=== PATIENT | female | born 1960 | race Caucasian/White ===

== ENCOUNTER → 2016-04-28 | Outpatient (CLI) | payer MEDICAID ==
--- NOTE | 2016-04-28 11:41 | XR ---
EXAMINATION TYPE: XR shoulder limited LT DATE OF EXAM: 04/28/2016 11:30 AM CLINICAL HISTORY: Neck and shoulder sprain injury with pain. TECHNIQUE: Three views of the left shoulder are obtained. COMPARISON: None. FINDINGS: There is no acute fracture/dislocation evident in the left shoulder. The acromioclavicula r and glenohumeral joint spaces appear within normal limits. The visualized ribs are intact and unre markable. IMPRESSION: There is no acute fracture or dislocation in the left shoulder.
--- NOTE | 2016-04-28 11:43 | XR ---
EXAMINATION TYPE: XR cervical spine limited DATE OF EXAM: 04/28/2016 11:30 AM TECHNIQUE: Frontal, lateral, and open mouth view of the cervical spine are obtained. HISTORY: Neck and shoulder sprain injury with pain. COMPARISON: Cervical spine x-ray July 14, 2013 FINDINGS: The cervical spine is visualized in its entirety from C1 thru the top of T1 level, it is s atisfactory in alignment without evidence of acute fracture or dislocation. The pre-vertebral soft t issue appears within normal limits. The C1-C2 articulation is within normal limits on the open mouth view. Vertebral body heights and disc space heights are fairly well-maintained. Single spur from an terior inferior C5 endplate is redemonstrated. Overlying soft tissue is unremarkable. IMPRESSION: Stable spur anterior inferior C5 vertebra. No significant new findings are seen.
== END | disposition home or self-care (01) ==
LOC: RADXRMAIN 11:07
PROVIDERS: ATTEND Family Medicine
DX: S43.005A Unspecified dislocation of left shoulder joint, initial encounter (principal); M46.02 Spinal enthesopathy, cervical region
CPT/HCPCS: 36415; 72040; 84443

== ENCOUNTER → 2016-05-02 | Outpatient (CLI) | payer MEDICAID ==
--- NOTE | 2016-05-02 16:05 | MR ---
EXAMINATION TYPE: MR shoulder LT wo con DATE OF EXAM: 05/02/2016 10:14 AM COMPARISON: Radiograph 04/28/2016 HISTORY: 55-year-old female Left shoulder pain TECHNIQUE: Multiplanar, multisequence imaging of the left shoulder is performed without contrast. FINDINGS: The long head biceps tendon appears intact and appropriately situated along the bicipital groove. Subscapularis tendon is intact. There is mild marginal spurring at the acromioclavicular joint without significant encroachment onto the underlying cuff. There is mild intermediate signal involving the anterior insertional fibers of the supraspinatus tend on. Both supraspinatus and infraspinatus tendons are intact. While there is no atrophy of the rotator cuff musculature, there is mild patchy edema within the infr aspinatus muscle belly and deltoid musculature and to a greater extent within the teres minor muscle belly. No fluid distention or significant thickening of the subacromial/subdeltoid bursa. There is edematous thickening of the axillary recess at 4.8 mm thick and some edematous change in the rotator cuff interval though the coracohumeral ligament remains less than 3 mm in thickness. There is some irregular signal extending into the superior labrum at the biceps anchor, coronal image 12. No paralabral cyst. No Hill-Sachs deformity or os acromiale. No suspicious bone marrow replacement. IMPRESSION: 1. There is some muscular edema involving the deltoid, infraspinatus, and teres minor suggesting mild muscle strains. Brachial plexus neuritis ([place]arson[place]-Lora syndrome) considered less likely given th e muscle distribution. Clinically correlate. 2. Some edema within the rotator cuff interval and edematous thickening of the axillary recess. These are nonspecific findings that can be seen in the setting of adhesive capsulitis. Again, clinically c orrelate. 3. Mild insertional tendinosis of the anterior supraspinatus. No rotator cuff tear. 4. Findings suspicious for small superior labral tear at the biceps anchor.
== END | disposition home or self-care (01) ==
LOC: RADMRIMAIN 09:25
PROVIDERS: ATTEND Family Medicine
DX: M67.814 Other specified disorders of tendon, left shoulder (principal); G58.8 Other specified mononeuropathies; R60.0 Localized edema

== ENCOUNTER 2017-03-16 11:07 | Emergency (ER) | payer MEDICAID, OTHER ==
[2017-03-16 11:46] VITALS: RESP 18
[2017-03-16 12:26] LABS: Appearance,Urine Clear (Clear); Bilirubin,Urine Negative (Negative); Glucose,Urine (UA) Negative (Negative); Ketones,Urine Negative (Negative); Leukocyte Esterase,Urine Negative (Negative); Nitrite,Urine Negative (Negative); PH, Urine 6.5 (5.0-8.0); Protein,Urine Negative (Negative); Specific Gravity,Urine 1.003 (1.001-1.035); UA Billing (MACRO vs. MICRO) CHEM; Urobilinogen,Urine <2.0 mg/dL (<2.0)
[2017-03-16 12:28] LABS: Basophils # (A) 0.1 k/uL (0-0.2); Basophils % (A) 1 %; CH 28.9; CHCM 33.3; Eosinophils # (A) 0.1 k/uL (0-0.7); Eosinophils % (A) 2 %; HDW 2.24; HGB 14.3 gm/dL (11.4-16.0); Luc # (Auto) 0.08; Luc % (Auto) 1; Lymphocytes # (A) 1.9 k/uL (1.0-4.8); Lymphocytes % (A) 24 %; MCH 28.4 pg (25.0-35.0); MCHC 32.5 g/dL (31.0-37.0); MCV 87.2 fL (80.0-100.0); Mean Platelet Volume 6.9; Monocytes # (A) 0.3 k/uL (0-1.0); Monocytes % (A) 4 %; Neutrophils # (A) 5.4 k/uL (1.3-7.7); Neutrophils % (A) 69 %; RBC 5.04 m/uL (3.80-5.40); RDW 14.5 % (11.5-15.5); WBC 7.8 k/uL (3.8-10.6); WBC (Perox) 7.86
[2017-03-16] MEDS ORDERED: SODIUM CHLORIDE 0.9% 1,000 ML IV ONE (12:28)
[2017-03-16 12:42] LABS: ALT 30 U/L (9-52); AST 20 U/L (14-36); Alkaline Phosphatase 96 U/L (38-126); Anion Gap 9 mmol/L; Blood Urea Nitrogen 13 mg/dL (7-17); Calcium 9.9 mg/dL (8.4-10.2); Carbon Dioxide 28 mmol/L (22-30); Chloride 104 mmol/L (98-107); Glucose 104 mg/dL (74-99); Non-African American GFR(MDRD) >60 (>60 ml/min/1.73 sqM); Potassium 4.5 mmol/L (3.5-5.1); Sodium 141 mmol/L (137-145); Total Bilirubin 0.3 mg/dL (0.2-1.3); Total Protein 7.2 g/dL (6.3-8.2)
[2017-03-16 12:54] LABS: INR 1.1 (<1.2); Prothrombin Time 10.7 sec (9.0-12.0)
--- NOTE | 2017-03-16 13:10 | ED ---
Dizziness HPI - General Chief Complaint: Dizziness Stated Complaint: Near Syncope Time Seen by Provider: 03/16/17 11:47 Source: patient, RN notes reviewed, old records reviewed Mode of arrival: ambulatory Limitations: no limitations - History of Present Illness Initial Comments: This a 56-year-old female presents emergency Department chief complaint of dizziness, near syncope. 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 She states she was sitting there states that she became very lightheaded. She states that she felt she was in the past. She states that at that time she felt her heart start racing. Patient states she try to get up which made symptoms worse. Patient states his appointment which [facility] in loss consciousness. Patient states that she try to eat and drink something states it did not help much. She states she's had problems with this in the past for palpitations and dizziness but states they usually just dissipates. States has not dissipated at this time. Patient denies any chest pain, headache , focal weakness, nausea or vomiting. Patient believes that her blood pressure was dropping when her heart rate was going up. Patient states she did not check her heart rate or blood pressure though - Related Data Home Medications Medication Instructions Recorded Confirmed ALPRAZolam 1 tab PO TID PRN 08/18/15 03/16/17 Cyclobenzaprine [Flexeril] 10 mg PO HS 03/16/17 03/16/17 Ergocalciferol (Vitamin D2) 50,000 unit PO Q30D 03/16/17 03/16/17 [Vitamin D2] Ibuprofen [Motrin] 600 mg PO Q6HR PRN 03/16/17 03/16/17 Lansoprazole [Prevacid] 30 mg PO DAILY 03/16/17 03/16/17 Levothyroxine Sodium [Synthroid] 125 mcg PO DAILY 03/16/17 03/16/17 diphenhydrAMINE [Benadryl] 25 mg PO DAILY PRN 03/16/17 03/16/17 Previous Rx's Medication Instructions Recorded Meclizine [Antivert] 25 mg PO TID PRN #15 tab 03/16/17 Allergies Allergy/AdvReac Type Severity Reaction Status Date / Time morphine AdvReac Nausea & Verified 03/16/17 12:10 Vomiting Review of Systems ROS Statement: Those systems with pertinent positive or pertinent negative responses have been documented in the HPI. ROS Other: All systems not noted in ROS Statement are negative. Past Medical History Past Medical History: GERD/Reflux, Thyroid Disorder Additional Past Medical History / Comment(s): migraines , hiatel hernia History of Any Multi-Drug Resistant Organisms: None Reported Past Surgical History: Cholecystectomy Additional Past Surgical History / Comment(s): colonoscopy Past Psychological History: Anxiety, Depression Smoking Status: Never smoker Past Alcohol Use History: None Reported Past Drug Use History: None Reported General Exam Limitations: no limitations General appearance: alert, in no apparent distress Head exam: Present: atraumatic, normocephalic, normal inspection Eye exam: Present: normal appearance, PERRL, EOMI. Absent: scleral icterus, conjunctival injection, periorbital swelling ENT exam: Present: normal exam, normal oropharynx, mucous membranes moist, TM's normal bilaterally, normal external ear exam Neck exam: Present: normal inspection, full ROM. Absent: tenderness, meningismus, lymphadenopathy Respiratory exam: Present: normal lung sounds bilaterally. Absent: respiratory distress, wheezes, rales, rhonchi, stridor Cardiovascular Exam: Present: regular rate, normal rhythm, normal heart sounds. Absent: systolic murmur, diastolic murmur, rubs, gallop, clicks GI/Abdominal exam: Present: soft, normal bowel sounds. Absent: distended, tenderness, guarding, rebound, rigid Neurological exam: Present: alert, oriented X3, CN II-XII intact Skin exam: Present: warm, dry, intact, normal color. Absent: rash Course Vital Signs 03/16/17 03/16/17 11:43 13:05 Temperature 97.9 F Pulse Rate 104 H Respiratory 18 Rate Blood Pressure 120/73 Blood Pressure 125/75 [Sitting] Blood Pressure 131/77 [Standing] Blood Pressure 123/76 [Supine] O2 Sat by Pulse 97 Oximetry EKG Findings - EKG Comments: EKG Findings:: EKG performed at 11:44 normal sinus rhythm rate of 94 CO 156 QRS 94 QT/QTC 382/477 Medical Decision Making - Medical Decision Making 56-year-old female presented for dizziness. Patient lab work is unremarkable there is no evidence of hypotension or orthostatic hypotension. Patient most likely exhibiting vertigo-type symptoms. Her symptoms are worse with movement. Patient will be discharged with Antivert at this time will have close follow- up return parameters were discussed. Patient again denies having chest pain. - Lab Data Result diagrams: 03/16/17 12:05 03/16/17 12:05 Lab Results 03/16/17 03/16/17 03/16/17 Range/Units 12:05 12:05 12:05 WBC 7.8 (3.8-10.6) k/uL RBC 5.04 (3.80-5.40) m/uL Hgb 14.3 (11.4-16.0) gm/dL Hct 44.0 (34.0-46.0) % MCV 87.2 (80.0-100.0) fL MCH 28.4 (25.0-35.0) pg MCHC 32.5 (31.0-37.0) g/dL RDW 14.5 (11.5-15.5) % Plt Count 289 (150-450) k/uL Neutrophils % 69 % Lymphocytes % 24 % Monocytes % 4 % Eosinophils % 2 % Basophils % 1 % Neutrophils # 5.4 (1.3-7.7) k/uL Lymphocytes # 1.9 (1.0-4.8) k/uL Monocytes # 0.3 (0-1.0) k/uL Eosinophils # 0.1 (0-0.7) k/uL Basophils # 0.1 (0-0.2) k/uL PT 10.7 (9.0-12.0) sec INR 1.1 (<1.2) Sodium 141 (137-145) mmol/L Potassium 4.5 (3.5-5.1) mmol/L Chloride 104 (98-107) mmol/L Carbon Dioxide 28 (22-30) mmol/L Anion Gap 9 mmol/L BUN 13 (7-17) mg/dL Creatinine 0.74 (0.52-1.04) mg/dL Est GFR (MDRD) Af Amer >60 (>60 ml/min/1.73 sqM) Est GFR (MDRD) Non-Af >60 (>60 ml/min/1.73 sqM) Glucose 104 H (74-99) mg/dL Calcium 9.9 (8.4-10.2) mg/dL Magnesium 2.0 (1.6-2.3) mg/dL Total Bilirubin 0.3 (0.2-1.3) mg/dL AST 20 (14-36) U/L ALT 30 (9-52) U/L Alkaline Phosphatase 96 (38-126) U/L Troponin I (0.000-0.034) ng/mL Total Protein 7.2 (6.3-8.2) g/dL Albumin 4.3 (3.5-5.0) g/dL TSH 1.870 (0.465-4.680) mIU/L Urine Color Urine Appearance (Clear) Urine pH (5.0-8.0) Ur Specific [place] (1.001-1.035) Urine Protein (Negative) Urine Glucose (UA) (Negative) Urine Ketones (Negative) Urine Blood (Negative) Urine Nitrite (Negative) Urine Bilirubin (Negative) Urine Urobilinogen (<2.0) mg/dL Ur Leukocyte Esterase (Negative) 03/16/17 03/16/17 Range/Units 12:05 12:05 WBC (3.8-10.6) k/uL RBC (3.80-5.40) m/uL Hgb (11.4-16.0) gm/dL Hct (34.0-46.0) % MCV (80.0-100.0) fL MCH (25.0-35.0) pg MCHC (31.0-37.0) g/dL RDW (11.5-15.5) % Plt Count (150-450) k/uL Neutrophils % % Lymphocytes % % Monocytes % % Eosinophils % % Basophils % % Neutrophils # (1.3-7.7) k/uL Lymphocytes # (1.0-4.8) k/uL Monocytes # (0-1.0) k/uL Eosinophils # (0-0.7) k/uL Basophils # (0-0.2) k/uL PT (9.0-12.0) sec INR (<1.2) Sodium (137-145) mmol/L Potassium (3.5-5.1) mmol/L Chloride (98-107) mmol/L Carbon Dioxide (22-30) mmol/L Anion Gap mmol/L BUN (7-17) mg/dL Creatinine (0.52-1.04) mg/dL Est GFR (MDRD) Af Amer (>60 ml/min/1.73 sqM) Est GFR (MDRD) Non-Af (>60 ml/min/1.73 sqM) Glucose (74-99) mg/dL Calcium (8.4-10.2) mg/dL Magnesium (1.6-2.3) mg/dL Total Bilirubin (0.2-1.3) mg/dL AST (14-36) U/L ALT (9-52) U/L Alkaline Phosphatase (38-126) U/L Troponin I <0.012 (0.000-0.034) ng/mL Total Protein (6.3-8.2) g/dL Albumin (3.5-5.0) g/dL TSH (0.465-4.680) mIU/L Urine Color Light Yellow Urine Appearance Clear (Clear) Urine pH 6.5 (5.0-8.0) Ur Specific [place] 1.003 (1.001-1.035) Urine Protein Negative (Negative) Urine Glucose (UA) Negative (Negative) Urine Ketones Negative (Negative) Urine Blood Negative (Negative) Urine Nitrite Negative (Negative) Urine Bilirubin Negative (Negative) Urine Urobilinogen <2.0 (<2.0) mg/dL Ur Leukocyte Esterase Negative (Negative) Disposition Clinical Impression: Dizziness Disposition: HOME SELF-CARE Condition: Stable Instructions: Dizziness (ED) Additional Instructions: Please return to the Emergency Department if symptoms worsen or any other concerns. Prescriptions: Meclizine [Antivert] 25 mg PO TID PRN #15 tab PRN Reason: Vertigo Referrals: Joao Harvey MD [Primary Care Provider] - 1-2 days Time of Disposition: 14:06
--- NOTE | 2017-03-16 13:55 | XR ---
EXAMINATION TYPE: XR chest 2V DATE OF EXAM: 03/16/2017 COMPARISON: 08/18/2015 HISTORY: Shortness of breath TECHNIQUE: Frontal and lateral views of the chest are obtained. FINDINGS: Scattered senescent parenchymal changes noted. No evidence for infiltrate. No evidence for atelectasis. Heart size is stable. Mediastinal structures are stable and grossly unremarkable. No evidence for hilar prominence. Degenerative changes dorsal spine. IMPRESSION: 1. No evidence for acute pulmonary disease.
[2017-03-16] MEDS ORDERED: MECLIZINE 12.5 MG TAB PO STA (14:05)
[2017-03-16 14:32] VITALS: BP 111/68; PULSE 96; TEMP 98
== END 2017-03-16 14:33 | disposition home or self-care (01) ==
LOC: EC 11:07
DX: R42 Dizziness and giddiness (principal); E07.9 Disorder of thyroid, unspecified; K21.9 Gastro-esophageal reflux disease without esophagitis; Z88.5 Allergy status to narcotic agent; Z79.899 Other long term (current) drug therapy
CPT/HCPCS: 36415; 71020; 80053; 81003; 83735; 84443; 84484; 85025; 85610; 93005; 96360; 99284

== ENCOUNTER → 2017-04-06 | Outpatient (CLI) | payer OTHER ==
--- NOTE | 2017-04-16 13:06 | HM ---
HOLTER MONITOR REPORT 48 HOUR HOLTER: There was a diary provided and only activities were noted but there were 2 episodes when patient felt some rapid heartbeat sensation. Predominant rhythm appears to be sinus with a heart rate ranging of 60 to 150 beats per minute with average heart rate of 115 beats per minute. On reviewing the Holter, there were 2 episodes of rapid heartbeat noted and these correlate with a sinus tachycardia at a rate of 116 beats per minute. There are 2 of them. I only am seeing 1. The second episode when she had some fluttering and dizziness also she was in a sinus tachycardia at a rate of about 128 beats per minute. The entire Holter pretty much suggests sinus tachycardia and sinus rhythm. No other abnormal rhythms were noted. There was no bradyarrhythmia noted. FINAL IMPRESSION: Predominantly sinus with an average heart rate of 117 beats per minute. Patient's perception of a rapid heart rate correlates with sinus tachycardia. No other tachy or bradyarrhythmias were noted. MMODMark / IJN: [id number] /
== END | disposition home or self-care (01) ==
LOC: RADECHMAIN 12:45
PROVIDERS: ATTEND Family Medicine
DX: R55 Syncope and collapse (principal)
CPT/HCPCS: 93225; 93226

== ENCOUNTER → 2017-05-10 | Outpatient (CLI) | payer OTHER ==
--- NOTE | 2017-05-10 12:25 | XR ---
EXAMINATION TYPE: XR hand complete LT DATE OF EXAM: 05/10/2017 CLINICAL HISTORY: pain TECHNIQUE: Frontal, lateral and oblique images of the left hand are obtained. COMPARISON: None. FINDINGS: There is no acute fracture/dislocation evident. The joint spaces appear within normal limi ts. The overlying soft tissue appears unremarkable. IMPRESSION: There is no acute fracture or dislocation. ICD 10 NO FRACTURE, INITIAL EVALUATION
== END | disposition home or self-care (01) ==
LOC: RADXRMAIN 12:00
PROVIDERS: ATTEND Emergency Medicine
DX: S63.613A Unspecified sprain of left middle finger, initial encounter (principal)

== ENCOUNTER 2018-11-07 12:15 | Inpatient (IN) | payer BC, OTHER ==
--- NOTE | 2018-11-07 12:37 | ED ---
Chest Pain HPI - General Chief Complaint: Chest Pain Stated Complaint: chest pain Time Seen by Provider: 11/07/18 12:27 Source: patient, RN notes reviewed, old records reviewed Mode of arrival: wheelchair Limitations: no limitations - History of Present Illness Initial Comments: This is a 57-year-old female the ER for evaluation. Patient sent in the ER for evaluation of chest pain today. Patient sent in by Dr. Wooten for evaluation of chest pain. Patient has no significant history of heart disease no significant travel history no sick contacts no fever cough or congestion MD Complaint: chest pain -: hour(s) Onset: during rest Pain Location: substernal, left chest Pain Radiation: none Severity: moderate Severity scale (1-10): 5 Quality: tightness, heaviness Consistency: constant Improves With: nothing Worsens With: nothing Anginal Symptoms: nausea Treatments Prior to Arrival: none - Related Data Home Medications Medication Instructions Recorded Confirmed ALPRAZolam 1 tab PO HS 08/18/15 11/07/18 Levothyroxine Sodium [Synthroid] 137 mcg PO HS 11/07/18 11/07/18 Montelukast [Singulair] 10 mg PO HS 11/07/18 11/07/18 hydrOXYzine HCL [Atarax] 25 mg PO HS 11/07/18 11/07/18 Allergies Allergy/AdvReac Type Severity Reaction Status Date / Time morphine AdvReac Nausea & Verified 11/07/18 12:51 Vomiting Review of Systems ROS Statement: Those systems with pertinent positive or pertinent negative responses have been documented in the HPI. ROS Other: All systems not noted in ROS Statement are negative. EKG Findings - EKG Comments: EKG Findings:: EKG shows sinus rhythm rate of 84, WA 170, QRS 74, QTc 470 Past Medical History Past Medical History: GERD/Reflux, Thyroid Disorder Additional Past Medical History / Comment(s): migraines , hiatel hernia History of Any Multi-Drug Resistant Organisms: None Reported Past Surgical History: Cholecystectomy Additional Past Surgical History / Comment(s): colonoscopy Past Psychological History: Anxiety, Depression Smoking Status: Never smoker Past Alcohol Use History: None Reported Past Drug Use History: None Reported General Exam Limitations: no limitations General appearance: alert, in no apparent distress Head exam: Present: atraumatic, normocephalic, normal inspection Eye exam: Present: normal appearance, PERRL, EOMI. Absent: scleral icterus, conjunctival injection, periorbital swelling ENT exam: Present: normal exam, mucous membranes moist Neck exam: Present: normal inspection. Absent: tenderness, meningismus, lymphadenopathy Respiratory exam: Present: normal lung sounds bilaterally. Absent: respiratory distress, wheezes, rales, rhonchi, stridor Cardiovascular Exam: Present: regular rate, normal rhythm, normal heart sounds. Absent: systolic murmur, diastolic murmur, rubs, gallop, clicks GI/Abdominal exam: Present: soft, normal bowel sounds. Absent: distended, tenderness, guarding, rebound, rigid Extremities exam: Present: normal inspection, full ROM, normal capillary refill. Absent: tenderness, pedal edema, joint swelling, calf tenderness Back exam: Present: normal inspection Neurological exam: Present: alert, oriented X3, CN II-XII intact Psychiatric exam: Present: normal affect, normal mood Skin exam: Present: warm, dry, intact, normal color. Absent: rash Course Vital Signs 11/07/18 12:23 Temperature 97.9 F Pulse Rate 99 Respiratory 20 Rate Blood Pressure 121/80 O2 Sat by Pulse 99 Oximetry - Reevaluation(s) Reevaluation #1: 11/07/18 12:37 Medical records reviewed Reevaluation #2: 11/07/18 15:[address] angio chest negative for acute disease Chest Pain MDM - MDM 57 female to ED co CP< Abd Pain since gallbladder surgery, patient is positive for pancreatitis, will admit for NPO, symptom management. Disposition Clinical Impression: Atypical chest pain, Acute pancreatitis Disposition: ADMITTED IP TO THIS [facility] Condition: Good Instructions (If sedation given, give patient instructions): Chest Pain (ED) Is patient prescribed a controlled substance at d/c from ED?: No Referrals: Joao Harvey MD [Primary Care Provider] - 1-2 days
[2018-11-07 13:01] LABS: Basophils % (A) 1 %; Eosinophils # (A) 0.1 k/uL (0-0.7); Eosinophils % (A) 1 %; HCT 42.4 % (34.0-46.0); HGB 13.6 gm/dL (11.4-16.0); Lymphocytes # (A) 2.1 k/uL (1.0-4.8); Lymphocytes % (A) 28 %; MCH 27.3 pg (25.0-35.0); MCV 85.4 fL (80.0-100.0); Mean Platelet Volume 6.3; Monocytes # (A) 0.2 k/uL (0-1.0); Monocytes % (A) 3 %; Neutrophils % (A) 66 %; Platelet Count 347 k/uL (150-450); RBC 4.96 m/uL (3.80-5.40); RDW 13.2 % (11.5-15.5); WBC 7.6 k/uL (3.8-10.6)
--- NOTE | 2018-11-07 13:07 | XR ---
EXAMINATION TYPE: XR chest 2V DATE OF EXAM: 11/07/2018 COMPARISON: 03/16/2017 HISTORY: Shortness of breath TECHNIQUE: Frontal and lateral views of the chest are obtained. FINDINGS: Scattered senescent parenchymal changes noted. Hyperinflation compatible with COPD. No evidence for infiltrate. No evidence for atelectasis. Heart size is stable. Mediastinal structures are stable and grossly unremarkable. No evidence for hilar prominence. Degenerative changes dorsal spine. IMPRESSION: 1. No evidence for acute pulmonary disease.
[2018-11-07 13:14] LABS: D-Dimer <0.17 mg/L FEU (<0.60); Partial Thromboplastin Time 24.4 sec (22.0-30.0); Prothrombin Time 10.3 sec (9.0-12.0)
[2018-11-07 13:21] LABS: ALT 18 U/L (9-52); AST 22 U/L (14-36); African American GFR (CKD) >90 (>60 ml/min/1.73 sqM); Albumin 4.5 g/dL (3.5-5.0); Alkaline Phosphatase 103 U/L (38-126); Anion Gap 9 mmol/L; Blood Urea Nitrogen 13 mg/dL (7-17); Calcium 9.6 mg/dL (8.4-10.2); Carbon Dioxide 25 mmol/L (22-30); Chloride 106 mmol/L (98-107); Glucose 119 mg/dL (74-99); Lipase 1744 U/L (23-300); Magnesium 1.9 mg/dL (1.6-2.3); Sodium 140 mmol/L (137-145); Total Bilirubin 0.4 mg/dL (0.2-1.3); Total Protein 7.2 g/dL (6.3-8.2)
[2018-11-07] MEDS ORDERED: HYDROmorphone 1 MG/ML 1 ML SYRINGE IVP PRN ×2 (14:31→19:43)
[2018-11-07] MEDS ORDERED: HYDROmorphone 0.5 MG/0.5 ML SYRINGE IVP STA (14:31)
--- NOTE | 2018-11-07 15:11 | CT ---
EXAMINATION TYPE: CT angio chest DATE OF EXAM: 11/07/2018 COMPARISON: None HISTORY: 57-year-old female Upper abdominal and chest pain TECHNIQUE: Contiguous axial scanning of the chest performed with IV Contrast, patient injected with 1 00 mL of Isovue 370. Coronal/sagittal MIP reconstructions performed. CT DLP: 220.3 mGycm Automated exposure control for dose reduction was used. FINDINGS: Areas of nodularity in the central portion of the superior left breast can be evaluated with routine annual mammography. Heart upper limits of normal in size. There is mild pericardial fluid along the left heart border. Aorta normal caliber with conventional arch vessel branching anatomy. Satisfactory opacification of the pulmonary nodule system without evidence for pulmonary embolus. No thoracic lymphadenopathy. Prominent but not enlarged 1.4 cm subcarinal lymph node. Prominent dependent atelectasis is noted. 3 mm peripheral right upper lobe pulmonary nodule from axial image 35. Mild diffuse bronchial wall th ickening. 1 cm splenic artery aneurysm at the splenic hilum. Cholecystectomy clips. Bones: No osseous destructive process. IMPRESSION: 1. NO EVIDENCE FOR PULMONARY EMBOLUS. 2. BRONCHIAL WALL THICKENING COULD REFLECT BRONCHITIS OR ASTHMA. PROMINENT DEPENDENT ATELECTASIS. 3. A 3 MM RIGHT UPPER LOBE PULMONARY NODULE CAN BE REASSESSED IN ONE YEAR. 4. A 1 CM SPLENIC ARTERY ANEURYSM. FOLLOW-UP INDICATED.
[2018-11-07] MEDS ORDERED: SODIUM CHLORIDE 0.9% 1,000 ML IV STA ×2 (15:13)
[2018-11-07] MEDS ORDERED: SODIUM CHLORIDE 0.9% 2,000 ML IV STA (15:13)
--- NOTE | 2018-11-07 15:24 | CT ---
EXAMINATION TYPE: CT abdomen pelvis w con DATE OF EXAM: 11/07/2018 COMPARISON: NONE HISTORY: 57-year-old female Upper abdominal and chest pain TECHNIQUE: Contiguous axial scanning of the abdomen and pelvis following administration of 100 ml Iso hilton 370 IV contrast. Delayed images through the kidneys and coronal/sagittal reconstructions perform ed. CT DLP: 457.6 mGycm Automated exposure control for dose reduction was used. FINDINGS: Lower chest reported separately. Indeterminate 1.4 cm hypodense lesion centrally in the right liver lobe. Additional hepatic hypodensi ties measuring up to 7 mm at the right hepatic are nonspecific. These are not as clearly seen on the delayed. Mild prominence to the biliary system status post cholecystectomy. Portal venous system is patent Possible hypervascular nodule posterior aspect of the pancreatic tail measuring 8 mm. This warrants c lose follow-up. Adrenal glands, kidneys appear within normal limits. Nonspecific 1 cm contour nodularity anterior low er pole spleen can be reassessed at follow-up. 1 cm splenic artery aneurysm. No dilated small bowel, free fluid, or free air. No mesenteric or retroperitoneal lymphadenopathy. Normal appendix. No significant stool burden. Mild circumferential wall thickening of the ascending a nd transverse colon may relate to nondistention. No pericolonic inflammatory change. Bladder urine distended. Uterus is visualized. Neither ovaries are clearly seen and could be small. N o abnormal fluid collection in the pelvis or pelvic lymphadenopathy. Bones: No osseous destructive process. IMPRESSION: 1. CIRCUMFERENTIAL WALL THICKENING OF THE ASCENDING AND TRANSVERSE COLON COULD BE SECONDARY TO NONDIS TENTION OR NONSPECIFIC MILD COLITIS. CLINICALLY CORRELATE. 2. POSSIBLE 8 MM HYPERVASCULAR MASS OF THE PANCREATIC TAIL. A NEUROENDOCRINE TUMOR AND PANCREATIC ISL ET CELL TUMOR ARE A COUPLE DIFFERENTIAL CONSIDERATIONS. CLOSE THREE-MONTH FOLLOW-UP RECOMMENDED. 3. A FEW INDETERMINATE LIVER LESIONS MEASURING UP TO 1.4 CM. THESE DO NOT CLEARLY REPRESENT CYSTS THEY ARE NOT WELL-SEEN ON THE DELAYED KIDNEY IMAGES. AGAIN, CLOSE FOLLOW-UP RECOMMENDED.
[2018-11-07] MEDS: hydrOXYzine HCL 25 MG TAB PO SCH (21:27)
[2018-11-07] MEDS: LEVOTHYROXINE 137 MCG TAB PO SCH (21:27)
[2018-11-07] MEDS: ALPRAZolam 1 MG TAB PO SCH (21:28)
[2018-11-07] MEDS: MONTELUKAST 10 MG TAB PO SCH (21:28)
[2018-11-07] MEDS ORDERED: ONDANSETRON 4 MG/2 ML VIAL IVP PRN (22:13)
[2018-11-07] MEDS ORDERED: diphenhydrAMINE 50 MG/ML 1 ML VIAL IVP PRN (22:53)
[2018-11-07] MEDS ORDERED: ACETAMINOPHEN TAB 325 MG TAB PO PRN (22:54)
[2018-11-08 08:01] LABS: Amylase 89 U/L (30-110); Lipase 361 U/L (23-300)
[2018-11-08] MEDS: ENOXAPARIN 40 MG/0.4 ML SYRINGE SQ SCH (09:53)
[2018-11-08] MEDS ORDERED: diphenhydrAMINE 25 MG CAP PO PRN (10:43)
--- NOTE | 2018-11-08 13:11 | P.CONS ---
History of Present Illness - Reason for Consult Consult date: 11/08/18 Pancreatitis Requesting physician: Blanca Gagnon - Chief Complaint Abdominal pain - History of Present Illness 57-year-old female past medical history laparoscopic cholecystectomy for cholelithiasis [address] Santos admitted with chest upper abdominal pain. CT abdomen and pelvis reported circumferential wall thickening of the ascending and transverse colon possible secondary to nondistention or nonspecific mild colitis. Possible 8 mm hypervascular mass pancreatic tail. Neuroendocrine tumor pancreatic islet cell tumor within differentials considerations. A few indeterminate liver lesions measuring up to 1.4 cm not clearly representing cysts. CT chest no evidence of pulmonary embolism. 3 mm right upper lobe pulmonary nodule and 1 cm splenic artery aneurysm. No history of pancreatitis. No history of alcoholism. No changes in medications. Patient has experienced over the last 2 years intermittent abdominal pain certain foods but nothing specific or consistent. No weight loss fever or chills. Denies hematemesis hematochezia melena. Remote peptic ulcer disease in her early 20s. No recent EGD. Colonoscopy 5 years ago to her memory was normal. White count 7.6. Hemoglobin 13.6. Platelet 347. INR 1.0. D-dimer less than 0.17. LFTs total bilirubin 0.4. AST 22. ALT 18. AP 103. Lipase 1744, today improved at 361. Amylase 89. Review of Systems Constitutional: Denies fever, chills, sweats, weight gain, or loss. HEENT: Negative for migraines, blurred vision or loss, earaches, drainage, tinnitus, oral mucosal lesions, dysphagia, or odynophagia. CARDIAC: Admitted with chest pain, denies arrhythmias, or palpitation. RESPIRATORY: Negative for shortness of breath, hemoptysis, cough, or sputum p roduction. GI: See HPI for pertinent findings. : Negative for hematuria, urgency, frequency, polyuria, or dysuria. GYNc: Denies possibility of . Negative vaginal discharge. MUSCULOSKELETAL: Negative for muscle aches, swelling, arthritis, and arthralgias. NEUROLOGIC: Negative for stroke or TIA. ENDOCRINE: Negative for thyroid problems. SKIN: Negative for rash or itching. PSYCHIATRIC: Negative history for depression and anxiety Past Medical History Past Medical History: GERD/Reflux, Thyroid Disorder Additional Past Medical History / Comment(s): migraines , hiatel hernia History of Any Multi-Drug Resistant Organisms: None Reported Past Surgical History: Cholecystectomy Additional Past Surgical History / Comment(s): colonoscopy, histalscopy, D&C Past Psychological History: Anxiety, Depression Smoking Status: Never smoker Past Alcohol Use History: None Reported Past Drug Use History: None Reported - Past Family History Father Additional Family Medical History / Comment(s): Father from end-stage COPD. Mother Additional Family Medical History / Comment(s): Mother at age 55 from non- Hodgkin's lymphoma. Brother(s) Additional Family Medical History / Comment(s): Patient had a total of 5 brothers: One at age 55 from lung cancer, one from a myocardial infarction with this first one being in his 50s. Patient has 3 brothers that are alive and one has coronary artery disease. One brother is a half-brother with no major medical problems. One full brother has no major medical problems. Sister(s) Additional Family Medical History / Comment(s): The patient has one sister with history of postural orthostatic tachycardic syndrome, cardiac ablation, hypot hyroidism. Daughter(s) Additional Family Medical History / Comment(s): The patient has 2 daughters and one has been diagnosed with Graves' disease. A second daughter and one son with no major medical problems. Medications and Allergies Home Medications Medication Instructions Recorded Confirmed Type ALPRAZolam 1 tab PO HS 08/18/15 11/07/18 History Levothyroxine Sodium [Synthroid] 137 mcg PO HS 11/07/18 11/07/18 History Montelukast [Singulair] 10 mg PO HS 11/07/18 11/07/18 History hydrOXYzine HCL [Atarax] 25 mg PO HS 11/07/18 11/07/18 History Allergies Allergy/AdvReac Type Severity Reaction Status Date / Time hydromorphone [From Dilaudid] AdvReac Severe Itching Verified 11/07/18 21:30 morphine AdvReac Nausea & Verified 11/07/18 19:28 Vomiting Physical Exam Vitals: Vital Signs Temp Pulse Pulse Pulse Resp BP BP 11/08/18 05:37 97.8 F 63 18 95/59 11/07/18 23:45 63 18 11/07/18 21:26 97.7 F 63 18 106/66 11/07/18 16:00 94 114/78 11/07/18 14:30 85 113/73 11/07/18 13:30 85 135/81 11/07/18 12:23 97.9 F 99 20 121/80 Pulse Ox 11/08/18 05:37 93 L 11/07/18 23:45 11/07/18 21:26 95 11/07/18 16:00 97 11/07/18 14:30 95 11/07/18 13:30 99 11/07/18 12:23 99 Intake and Output 11/07/18 11/08/18 11/08/18 22:59 06:59 14:59 Intake Total 300 400 Output Total 3 Balance 297 400 Intake: Intake, IV Titration 300 400 Amount Sodium Chloride 0.9% 1, 300 400 000 ml @ 100 mls/hr IV . Q10H STA Rx#:[id number] Output: Urine 3 Other: Voiding Method Toilet General appearance: The patient is alert, oriented, in no acute distress. HET: Head is normocephalic and atraumatic. Pupils are equal and reactive. Oropharynx is clear without lesions. Neck: Supple without lymphadenopathy. Trachea midline. Heart: S1 S2. Regular rate and rhythm. Lungs: No crackles or wheezes are heard. Abdomen: Soft, mild tenderness to the midepigastric, nondistended with bowel sounds. No peritoneal signs. No palpable organomegaly or masses. Extremities: Normal skin color and turgor. No cyanosis, rash, ulceration, clubb ing, or edema. Radial and pedal pulses are 2/4 bilaterally. Neurological: No focal deficits. Strength and sensation are grossly intact. Results CBC & Chem 7: 11/07/18 12:30 11/07/18 12:30 Labs: Abnormal Lab Results - Last 24 Hours (Table) 11/07/18 11/08/18 Range/Units 12:30 07: Glucose 119 H (74-99) mg/dL Lipase 1744 H 361 H (23-300) U/L CT scan - abdomen: report reviewed (Dr. Barahona) CT scan - chest: report reviewed (Dr. Barahona) Assessment and Plan (1) Acute pancreatitis Narrative/Plan: 57-year-old female with a history of calculus cholecystectomy 5 years ago presents with acute abdominal pain elevated pancreatic enzymes consistent with acute pancreatitis etiology unclear. Abdominal imaging reported hepatic indeterminate lesions as well as pancratic tail hypervascular mass. Current Visit: Yes Status: Acute Code(s): K85.90 - ACUTE PANCREATITIS WITHOUT NECROSIS OR INFECTION, UNSP SNOMED Code(s): 587647080 (2) Chest pain Current Visit: Yes Status: Acute Code(s): R07.9 - CHEST PAIN, UNSPECIFIED SNOMED Code(s): 97348737 (3) Abnormal CT of the abdomen Current Visit: Yes Status: Acute Code(s): R93.5 - ABN FINDINGS ON DX IMAGING OF ABD REGIONS, INC RETROPERITON SNOMED Code(s): 71522907512092156 Plan: 1. EUS abdomen pending. MRI pancreas/ MRCP. Daily CMP CBC amylase lipase. Triglycerides. [employer] serology. CA-19-9. AFP CEA. Light diet as tolerated pending improvement of pancreatic enzymes. Will follow closely with you. Patient may require outpatient EUS per clinical course. Thank you for this kind referral and the opportunity to participate in the care of your patient. This consultation was discussed with Dr. Barahona. The impression and plan of care have been directed as dictated.
[2018-11-08] MEDS: PANTOPRAZOLE 40 MG/10 ML VIAL IVP SCH (13:24)
--- NOTE | 2018-11-08 14:12 | US ---
EXAMINATION TYPE: US abdomen limited DATE OF EXAM: 11/08/2018 COMPARISON: CT abdomen 11/07/2018 CLINICAL HISTORY: Pancreatitis, hx cholecystectomy. GB removed. EXAM MEASUREMENTS: Liver Length: 14.5 cm CBD: 0.7 cm Right Kidney: 9.6 x 4.4 x 5.2 cm Suboptimal visualization due to overlying bowel gas Pancreas: Portions seen appear echogenic in appearance. Prominent vessel seen in tail. Limited vis ualization of pancreas due to overlying bowel Liver: Limited visualization of liver due to bowel gas. Scanned through ribs. Cystic appearing les ion seen in right lobe = 0.5 cm., Smaller lesion at the margin of the left lobe, findings correlate w ith CT Gallbladder: Surgically absent Evidence for sonographic Olivas's sign: neg CBD: Dilated Right Kidney: wnl There is no ascites. Cortical medullary differentiation is maintained within the right kidney. IMPRESSION: Status post cholecystectomy. Probable liver cysts. Prominent common bile duct likely due to postcholecystectomy change. Limited exam. The abnormality described on patient's CT within the kevin l of the pancreas is not seen definitively on ultrasound
--- NOTE | 2018-11-08 14:59 | P.HPIM ---
History of Present Illness H&P Date: 11/08/18 Chief Complaint: Abdominal pain This is a 57-year-old female patient of Dr. Harvey with past medical history of hypothyroidism, seasonal ALLERGIES, generalized anxiety disorder, hiatal hernia, migraine headaches, history of cholecystectomy [place] [address] Santos. Patient states that she has been having episodes of pain in the upper abdomen under her ribs since her gallbladder was taken out. She states sometimes it so severe that she doubles over in this happened yesterday. 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 She states she did not have any food didn't eat yesterday and only had a couple drinks of Sprite. The day before she had gross and mashed potatoes. Patient came into [facility] emergency center for evaluation. She was afebrile, heart rate 99, blood pressure 121/90, pulse ox 99% on room air. CBC was normal, CMP was normal except for glucose of 119. Troponin negative. Lipase 1744. Chest x-ray was negative for acute cardiopulmonary disease. CT angiogram of the chest revealed no pulmonary embolism. Bronchial wall thickening could reflect bronchitis or asthma. Prominent dependent atelectasis. A 3 mm right upper lobe pulmonary n odule can be reassessed in one year. A 1 cm splenic artery aneurysm. CT of the abdomen and pelvis revealed circumferential wall thickening of the ascending and transverse colon could be secondary to non-distention or nonspecific mild colitis. Clinically correlate. Possible 8 mm hypervascular mass of the pancreatic tail. A neuroendocrine tumor or pancreatic islet cell tumor are a couple differential considerations. Close three-month follow-up is recommended. A few indeterminate liver lesions measuring up to 1.4 cm. These do not clearly represents cyst as they are not as well seen on the delayed kidney images. Review of Systems All systems: negative Constitutional: Reports poor appetite, Denies chills, Denies fatigue, Denies fever, Denies malaise, Denies weakness Eyes: denies blurred vision, denies pain Ears, nose, mouth and throat: Denies dysphagia, Denies headache, Denies nasal congestion, Denies nasal discharge, Denies sore throat, Denies vertigo Cardiovascular: Denies chest pain, Denies decreased exercise tolerance, Denies dyspnea on exertion, Denies leg edema, Denies shortness of breath, Denies syncope Respiratory: Denies cough, Denies cough with sputum, Denies dyspnea, Denies excessive sputum, Denies hemoptysis, Denies home oxygen, Denies respiratory infections Gastrointestinal: Reports abdominal pain, Reports loss of appetite, Reports nausea, Denies diarrhea, Denies vomiting Genitourinary: Denies dysuria, Denies hematuria, Denies urgency, Denies urinary frequency Musculoskeletal: Denies frequent falls, Denies gait dysfunction, Denies muscle weakness, Denies myalgias Integumentary: Denies pruritus, Denies rash, Denies wounds Neurological: Denies aphasia, Denies change in mentation, Denies change in speech, Denies numbness, Denies seizures, Denies weakness Psychiatric: Denies anxiety, Denies depression Endocrine: Denies fatigue, Denies weight change Past Medical History Past Medical History: GERD/Reflux, Thyroid Disorder Additional Past Medical History / Comment(s): migraines , hiatel hernia History of Any Multi-Drug Resistant Organisms: None Reported Past Surgical History: Cholecystectomy Additional Past Surgical History / Comment(s): colonoscopy, histalscopy, D&C Past Psychological History: Anxiety, Depression Smoking Status: Never smoker Past Alcohol Use History: None Reported Additional Past Alcohol Use History / Comment(s): She is a lifelong nonsmoker. She denies any illicit drug use, no alcohol abuse. 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 Past Drug Use History: None Reported - Past Family History Father Additional Family Medical History / Comment(s): Father from end-stage COPD. Mother Additional Family Medical History / Comment(s): Mother at age 55 from non- Hodgkin's lymphoma. Brother(s) Additional Family Medical History / Comment(s): Patient had a total of 5 brothers: One at age 55 from lung cancer, one from a myocardial infarction with this first one being in his 50s. Patient has 3 brothers that are alive and one has coronary artery disease. One brother is a half-brother with no major medical problems. One full brother has no major medical problems. Sister(s) Additional Family Medical History / Comment(s): The patient has one sister with history of postural orthostatic tachycardic syndrome, cardiac ablation, hypot hyroidism. Daughter(s) Additional Family Medical History / Comment(s): The patient has 2 daughters and one has been diagnosed with Graves' disease. A second daughter and one son with no major medical problems. Medications and Allergies Home Medications Medication Instructions Recorded Confirmed Type ALPRAZolam 1 tab PO HS 08/18/15 11/07/18 History Levothyroxine Sodium [Synthroid] 137 mcg PO HS 11/07/18 11/07/18 History Montelukast [Singulair] 10 mg PO HS 11/07/18 11/07/18 History hydrOXYzine HCL [Atarax] 25 mg PO HS 11/07/18 11/07/18 History Allergies Allergy/AdvReac Type Severity Reaction Status Date / Time hydromorphone [From Dilaudid] AdvReac Severe Itching Verified 11/07/18 21:30 morphine AdvReac Nausea & Verified 11/07/18 19:28 Vomiting Physical Exam Vitals: Vital Signs Temp Pulse Pulse Pulse Pulse Resp BP 11/08/18 11:27 97.9 F 89 15 11/08/18 05:37 97.8 F 63 18 11/07/18 23:45 63 18 11/07/18 21:26 97.7 F 63 18 11/07/18 16:00 94 114/78 11/07/18 14:30 85 113/73 11/07/18 13:30 85 135/81 11/07/18 12:23 97.9 F 99 20 121/80 BP BP Pulse Ox 11/08/18 11:27 108/54 98 11/08/18 05:37 95/59 93 L 11/07/18 23:45 11/07/18 21:26 106/66 95 11/07/18 16:00 97 11/07/18 14:30 95 11/07/18 13:30 99 11/07/18 12:23 99 Intake and Output 11/07/18 11/08/18 11/08/18 22:59 06:59 14:59 Intake Total 300 400 Output Total 3 Balance 297 400 Intake: Intake, IV Titration 300 400 Amount Sodium Chloride 0.9% 1, 300 400 000 ml @ 100 mls/hr IV . Q10H STA Rx#:[id number] Output: Urine 3 Other: Voiding Method Toilet Toilet Gen: This is a 57-year-old female. Patient is resting bed and appears to be comfortable and in no acute distress. HEENT: Head is atraumatic, normocephalic. Pupils equal, round. Sclerae is anicteric. NECK: Supple. No JVD. No lymphadenopathy. No thyromegaly. LUNGS: Clear to auscultation. No wheezes or rhonchi. No intercostal retractions. HEART: Regular rate and rhythm. No murmur. ABDOMEN: Soft. Bowel sounds are present. No masses. Right upper quadrant tenderness. EXTREMITIES: No pedal edema. No calf tenderness. Dorsalis pedis +2 bilaterally. NEUROLOGICAL: Patient is awake, alert and oriented x3. Cranial nerves 2 through 12 are grossly intact. Results CBC & Chem 7: 11/07/18 12:30 11/07/18 12:30 Labs: Abnormal Lab Results - Last 24 Hours (Table) 11/07/18 11/08/18 Range/Units 12:30 07:19 Glucose 119 H (74-99) mg/dL Lipase 1744 H 361 H (23-300) U/L Thrombosis Risk Factor Assmnt - DVT/VTE Prophylaxis DVT/VTE Prophylaxis: Pharmacologic Prophylaxis ordered - Choose All That Apply Each Factor Represents 1 point: Age 41-60 years Other Risk Factors: No Thrombosis Risk Factor Assessment Total Risk Factor Score: 1 Thrombosis Risk Factor Assessment Level: Low Risk Assessment and Plan Plan: 1. Acute pancreatitis. Consult GI. IV fluids will be discontinued and patient started on a soft diet. Chromogranin A, CEA, alpha-fetoprotein, CA 199 all ordered. Continue Zofran for pain. Abdominal ultrasound ordered. 2. Possible 8 mm hypervascular mass of the pancreas tail found on CAT scan. Abdominal ultrasound. 3. Indeterminate liver lesions found on CAT scan. Abdominal ultrasound 4. Gastroesophageal reflux disease and hiatal hernia. Protonix 5. Hypothyroidism. Levothyroxine 137 g daily 6. Migraine headache. 7. Generalized anxiety disorder. Xanax 1 mg at bedtime. 8. Seasonal ALLERGIES. Continue Singulair. 9. DVT prophylaxis. Lovenox. 10. GI prophylaxis. Protonix. Patient will be admitted to the hospital for a minimum of 2 night stay. Discharge plan: Return home. Impression and plan of care have been directed as dictated by the signing physician. Rochelle Nunes nurse practitioner acting as scribe for signing physician.
[2018-11-08 19:18] LABS: Alpha Fetoprotein, Tumor Mkr <2.5 ng/mL (0.0-7.9)
[2018-11-08 19:32] LABS: Cancer Antigen 19-9 21.9 U/mL (0.0-34.9)
--- NOTE | 2018-11-08 19:40 | MR ---
MR pancreas, MRCP without and with contrast HISTORY: Multiplanar multisequence and postcontrast images obtained through the abdomen following 6.5 cc Gadav ist IV. Three-dimensional reconstructions performed through the biliary system. Correlation ultrasound abdomen 11/08/[address] abdomen pelvis 11/05/2018 The abnormality described within the tail of the pancreas and prior CT is again noted and shows mild increased signal in T2-weighted sequences, intermediate signal on T1-weighted sequences and mild enha ncement following contrast administration. The area measures only approximately 8 mm at the level of the tail of pancreas posteriorly and immediately anterior to the spleen at its medial aspect. The previously described cystic foci within the liver show corresponding mild increased signal on T1- weighted sequences, low signal on T2-weighted sequences, and no enhancement following contrast admini stration, the largest in the medial aspect of the right lobe liver with internal septations and measu res approximately 15 mm. There is no dilated intra or extrahepatic biliary ducts. Gallbladder is abse nt. There is no retroperitoneal adenopathy. Adrenal glands and kidneys are unremarkable. Aorta shows norm al caliber. MRCP shows no dilated intra or extrahepatic biliary ducts. There is no intraluminal filling defect to suggest retained gallstone. IMPRESSION: Subcentimeter vascular mass suspected at the posterior aspect of the pancreatic tail is i ndeterminate. Liver cysts. Postcholecystectomy.
[2018-11-08] MEDS: hydrOXYzine HCL 25 MG TAB PO SCH (20:26)
[2018-11-08] MEDS: ALPRAZolam 1 MG TAB PO SCH (20:26)
[2018-11-08] MEDS: MONTELUKAST 10 MG TAB PO SCH (20:27)
[2018-11-08] MEDS: LEVOTHYROXINE 137 MCG TAB PO SCH (20:27)
[2018-11-09] MEDS: PANTOPRAZOLE 40 MG/10 ML VIAL IVP SCH (09:01)
[2018-11-09] MEDS: ENOXAPARIN 40 MG/0.4 ML SYRINGE SQ SCH (09:01)
[2018-11-09 09:32] LABS: Cholesterol 223 mg/dL (<200); HDL Cholesterol 68 mg/dL (40-60); LDL Cholesterol,Calculated 133 mg/dL (0-99); Lipase 83 U/L (23-300); Triglycerides 108 mg/dL (<150)
[2018-11-09 12:18] VITALS: BP 114/63; PULSE 58; RESP 15; TEMP 97.6
--- NOTE | 2018-11-09 15:25 | P.DS ---
Providers Date of admission: 11/07/18 15:50 Expected date of discharge: 11/09/18 Attending physician: Blanca Gagnon Consults: 11/07/18 15:50 Consult Physician Routine Consulting Provider: Ender Barahona Consult Reason/Comments: pancreatitis Do you want consulting provider notified?: Yes Primary care physician: Joao Harvey [facility] Course: This is a 57-year-old female patient of Dr. Harvey with past medical history of hypothyroidism, seasonal ALLERGIES, generalized anxiety disorder, hiatal hernia, migraine headaches, history of cholecystectomy [place] [address] Santos. Patient states that she has been having episodes of pain in the upper abdomen under her ribs since her gallbladder was taken out. She states sometimes it so severe that she doubles over in this happened yesterday. 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 She states she did not have any food didn't eat yesterday and only had a couple drinks of Sprite. The day before she had gross and mashed potatoes. Patient came into [facility] emergency center for evaluation. She was afebrile, heart rate 99, blood pressure 121/90, pulse ox 99% on room air. CBC was normal, CMP was normal except for glucose of 119. Troponin negative. Lipase 1744. Chest x-ray was negative for acute cardiopulmonary disease. CT angiogram of the chest revealed no pulmonary embolism. Bronchial wall thickening could reflect bronchitis or asthma. Prominent dependent atelectasis. A 3 mm right upper lobe pulmonary nodule can be reassessed in one year. A 1 cm splenic artery aneurysm. CT of the abdomen and pelvis revealed circumferential wall thickening of the ascending and transverse colon could be secondary to non-distention or nonspecific mild colitis. Clinically correlate. Possible 8 mm hypervascular mass of the pancreatic tail. A neuroendocrine tumor or pancreatic islet cell tumor are a couple differential considerations. Close three-month follow-up is recommended. A few indeterminate liver lesions measuring up to 1.4 cm. These do not clearly represents cyst as they are not as well seen on the delayed kidney images. 11/09: Patient states that she is feeling much better today. She is eating okay. Today is her first solid food. She denies having any nausea or vomiting. She is not passing gas and has not had a bowel movement. Pain is now just a discomfort under her ribs. MRCP reveals subcentimeter vascular mass suspected at the posterior aspect of the pancreatic tail is indeterminate. Liver cysts. Post cholecystectomy. Repeat lipase today is 83, AFP tumor marker, CEA, CA 199 all negative. Triglycerides 108, cholesterol 223, LDL 133, HDL 68. Chromogranin, JENNIFER, IgE subclasses all pending. If chromogranin comes back positive, patient will need follow-up with oncology. Patient will be discharged home today in stable condition. Discharge diagnoses: 1. Acute pancreatitis. 2. Possible 8 mm hypervascular mass of the pancreas tail found on CAT scan. 3. Indeterminate liver lesions: Liver cysts per MRCP. 4. Gastroesophageal reflux disease and hiatal hernia. 5. Hypothyroidism. 6. Migraine headache. 7. Generalized anxiety disorder. 8. Seasonal ALLERGIES. Discharge plan: Return home. Impression and plan of care have been directed as dictated by the signing physician. Rochelle Nunes nurse practitioner acting as scribe for signing physician. Patient Condition at Discharge: Good Plan - Discharge Summary Discharge Rx Participant: Yes New Discharge Prescriptions: New Pantoprazole Sodium [Protonix] 40 mg PO DAILY #30 tablet. Continue ALPRAZolam 1 tab PO HS Levothyroxine Sodium [Synthroid] 137 mcg PO HS hydrOXYzine HCL [Atarax] 25 mg PO HS Montelukast [Singulair] 10 mg PO HS Discharge Medication List ALPRAZolam 1 tab PO HS 08/18/15 [History] Levothyroxine Sodium [Synthroid] 137 mcg PO HS 11/07/18 [History] Montelukast [Singulair] 10 mg PO HS 11/07/18 [History] hydrOXYzine HCL [Atarax] 25 mg PO HS 11/07/18 [History] Pantoprazole Sodium [Protonix] 40 mg PO DAILY #30 tablet. 11/09/18 [Rx] Follow up Appointment(s)/Referral(s): Joao Harvey MD [Primary Care Provider] - 11/17/18 8:45 am Ender Barahona MD [STAFF PHYSICIAN] - 1 Week (Patient prefers to make own follow-up appt. ) Patient Instructions/Handouts: Pantoprazole (By mouth), Pancreatitis (DC) Discharge Disposition: HOME SELF-CARE
[2018-11-10] MEDS ORDERED: PANTOPRAZOLE 40 MG TABLET PO SCH (09:00)
[2018-11-10 11:06] LABS: IgG Subclass 3 32.7 mg/dL (11.0-85.0); IgG Subclass 4 16.5 mg/dL (3.0-175.0)
== END 2018-11-09 14:20 | disposition home or self-care (01) | DRG 440 ==
LOC: EC 12:15 → 3NMEDONC 15:50
PROVIDERS: ADMIT Internal Medicine; ATTEND Internal Medicine
DX: K85.90 Acute pancreatitis without necrosis or infection, unspecified (principal); K44.9 Diaphragmatic hernia without obstruction or gangrene; K21.9 Gastro-esophageal reflux disease without esophagitis; K76.89 Other specified diseases of liver; K86.9 Disease of pancreas, unspecified; E03.9 Hypothyroidism, unspecified; F32.9 Major depressive disorder, single episode, unspecified; F41.1 Generalized anxiety disorder; G43.909 Migraine, unspecified, not intractable, without status migrainosus; Z79.890 Hormone replacement therapy; Z79.899 Other long term (current) drug therapy; Z80.1 Family history of malignant neoplasm of trachea, bronchus and lung; Z80.7 Family history of other malignant neoplasms of lymphoid, hematopoietic and related tissues; Z82.5 Family history of asthma and other chronic lower respiratory diseases; Z82.49 Family history of ischemic heart disease and other diseases of the circulatory system; Z87.11 Personal history of peptic ulcer disease; J30.2 Other seasonal allergic rhinitis; R91.1 Solitary pulmonary nodule; Z90.49 Acquired absence of other specified parts of digestive tract
CPT/HCPCS: 36415; 71046; 71275; 74177; 74183; 76705; 80053; 80061; 82105; 82150; 82378; 82787; 83690; 83735; 83880; 84484; 85025; 85379; 85610; 85730; 86038; 86301; 86316; 96361; 96374; 99285

== ENCOUNTER 2019-01-06 10:21 | Inpatient (IN) | payer BC, OTHER ==
[2019-01-06] MEDS ORDERED: SODIUM CHLORIDE 0.9% 1,000 ML IV STA (11:03)
[2019-01-06] MEDS ORDERED: KETOROLAC 30 MG/ML 1 ML VIAL IVP STA (11:04)
[2019-01-06 11:50] LABS: Basophils # (A) 0.1 k/uL (0-0.2); Basophils % (A) 1 %; Eosinophils # (A) 0.1 k/uL (0-0.7); Eosinophils % (A) 1 %; HCT 39.3 % (34.0-46.0); HGB 12.9 gm/dL (11.4-16.0); Lymphocytes # (A) 1.6 k/uL (1.0-4.8); Lymphocytes % (A) 17 %; MCH 28.4 pg (25.0-35.0); MCHC 32.9 g/dL (31.0-37.0); MCV 86.4 fL (80.0-100.0); Mean Platelet Volume 6.7; Monocytes # (A) 0.4 k/uL (0-1.0); Monocytes % (A) 4 %; Neutrophils % (A) 75 %; Platelet Count 263 k/uL (150-450); RBC 4.55 m/uL (3.80-5.40); WBC 9.3 k/uL (3.8-10.6)
[2019-01-06 12:01] LABS: Partial Thromboplastin Time 23.2 sec (22.0-30.0); Prothrombin Time 10.3 sec (9.0-12.0)
[2019-01-06 12:06] LABS: ALT 58 U/L (9-52); AST 107 U/L (14-36); African American GFR (CKD) >90 (>60 ml/min/1.73 sqM); Alkaline Phosphatase 105 U/L (38-126); Amylase 204 U/L (30-110); Anion Gap 11 mmol/L; Blood Urea Nitrogen 21 mg/dL (7-17); Carbon Dioxide 21 mmol/L (22-30); Chloride 107 mmol/L (98-107); Glucose 87 mg/dL (74-99); Potassium 4.4 mmol/L (3.5-5.1); Sodium 139 mmol/L (137-145); Total Bilirubin 0.6 mg/dL (0.2-1.3); Total Protein 6.7 g/dL (6.3-8.2)
[2019-01-06 12:12] LABS: Amorphous Sediment,Urine Rare /hpf; Appearance,Urine Cloudy (Clear); Bacteria,Urine Rare /hpf; Bilirubin,Urine Negative (Negative); Blood,Urine Negative (Negative); Color,Urine Yellow; Glucose,Urine (UA) Negative (Negative); Ketones,Urine Negative (Negative); Leukocyte Esterase,Urine Large (Negative); Mucus,Urine Rare /hpf; Nitrite,Urine Negative (Negative); PH, Urine 5.5 (5.0-8.0); Protein,Urine Negative (Negative); RBC,Urine 2 /hpf (0-5); Specific Gravity,Urine 1.019 (1.001-1.035); Squamous Epithelial Cell,Urine 8 /hpf (0-4); Urobilinogen,Urine <2.0 mg/dL (<2.0)
--- NOTE | 2019-01-06 12:15 | XR ---
EXAMINATION TYPE: XR chest 2V DATE OF EXAM: 01/06/2019 COMPARISON: 11/07/2018 INDICATION: Chest pain TECHNIQUE: Frontal and lateral views of the chest are obtained. FINDINGS: The heart size is normal. The pulmonary vasculature is normal. The lungs are clear. IMPRESSION: 1. No acute pulmonary process.
[2019-01-06] MEDS ORDERED: NITROGLYCERIN SL TABS 0.4 MG TAB SUBLINGUAL PRN (12:31)
--- NOTE | 2019-01-06 12:32 | ED ---
General Adult HPI - General Chief complaint: Chest Pain Stated complaint: Chest and back pain Time Seen by Provider: 01/06/19 10:31 Source: patient, RN notes reviewed Mode of arrival: ambulatory Limitations: no limitations - History of Present Illness Initial comments: 58-year-old female presents emergency Department with chief complaint of chest and abdominal pain. Patient states that she feels her pancreatitis is back. Patient states she was hospitalized in [facility] for similar symptoms. Patient states she has pain in her upper abdomen. She states she feels nauseated no vomiting or diarrhea no constipation appears chills. She states that she has some pain that radiates up into her chest. Patient states that she has no upper back pain denies any shortness breath no headache or dizziness. Patient also states that she injured her back twisting. She has low back pain. She states that some pain rates down her left leg denies any paresthesias no discoloration of her leg. - Related Data Home Medications Medication Instructions Recorded Confirmed ALPRAZolam 1 tab PO TID PRN 08/18/15 01/06/19 Levothyroxine Sodium [Synthroid] 137 mcg PO HS 11/07/18 01/06/19 hydrOXYzine HCL [Atarax] 25 mg PO TID PRN 11/07/18 01/06/19 Acetaminophen-Codeine 300-30mg 1 tab PO ONCE PRN 01/06/19 01/06/19 [Tylenol w/codeine #3] Albuterol Sulfate [Proair Hfa] 1 - 2 puff INHALATION RT-Q6H PRN 01/06/19 Fluticasone/Vilanterol [Breo 1 puff INHALATION RT-BID 01/06/19 01/06/19 Ellipta 100-25 Mcg Inhaler] Ospemifene [Osphena] 60 mg PO HS 01/06/19 01/06/19 Allergies Allergy/AdvReac Type Severity Reaction Status Date / Time hydromorphone [From Dilaudid] AdvReac Severe Itching Verified 01/06/19 10:49 morphine AdvReac Nausea & Verified 01/06/19 10:49 Vomiting Review of Systems ROS Statement: Those systems with pertinent positive or pertinent negative responses have been documented in the HPI. ROS Other: All systems not noted in ROS Statement are negative. Past Medical History Past Medical History: GERD/Reflux, Thyroid Disorder Additional Past Medical History / Comment(s): migraines , hiatel hernia, pancrea titis History of Any Multi-Drug Resistant Organisms: None Reported Past Surgical History: Cholecystectomy Additional Past Surgical History / Comment(s): colonoscopy, histalscopy, D&C Past Psychological History: Anxiety, Depression Smoking Status: Never smoker Past Alcohol Use History: None Reported Past Drug Use History: None Reported - Past Family History Father Additional Family Medical History / Comment(s): Father from end-stage COPD. Mother Additional Family Medical History / Comment(s): Mother at age 55 from non-Hodgkin's lymphoma. Brother(s) Additional Family Medical History / Comment(s): Patient had a total of 5 brothers: One at age 55 from lung cancer, one from a myocardial infarction with this first one being in his 50s. Patient has 3 brothers that are alive and one has coronary artery disease. One brother is a half-brother with no major medical problems. One full brother has no major medical problems. Sister(s) Additional Family Medical History / Comment(s): The patient has one sister with history of postural orthostatic tachycardic syndrome, cardiac ablation, hypothyroidism. Daughter(s) Additional Family Medical History / Comment(s): The patient has 2 daughters and one has been diagnosed with Graves' disease. A second daughter and one son with no major medical problems. General Exam Limitations: no limitations General appearance: alert, in no apparent distress Head exam: Present: atraumatic, normocephalic, normal inspection Eye exam: Present: normal appearance, PERRL, EOMI. Absent: scleral icterus, conjunctival injection, periorbital swelling ENT exam: Present: normal exam, normal oropharynx, mucous membranes moist Neck exam: Present: normal inspection, full ROM. Absent: tenderness, meningismus, lymphadenopathy Respiratory exam: Present: normal lung sounds bilaterally. Absent: respiratory distress, wheezes, rales, rhonchi, stridor Cardiovascular Exam: Present: regular rate, normal rhythm, normal heart sounds. Absent: systolic murmur, diastolic murmur, rubs, gallop, clicks GI/Abdominal exam: Present: soft, tenderness (Moderate mid abdominal tenderness), normal bowel sounds. Absent: distended, guarding, rebound, rigid Back exam: Absent: CVA tenderness (R), CVA tenderness (L) Neurological exam: Present: alert, oriented X3, CN II-XII intact Skin exam: Present: warm, dry, intact, normal color. Absent: rash Course Vital Signs 01/06/19 01/06/19 10:27 12:23 Temperature 97.4 F L Pulse Rate 68 72 Respiratory 18 16 Rate Blood Pressure 125/79 105/68 O2 Sat by Pulse 100 98 Oximetry EKG Findings - EKG Comments: EKG Findings:: EKG performed at 10:44 normal sinus rhythm rate of 60 5 PM 172 QRS 86 QT/qtc 442/459 Medical Decision Making - Medical Decision Making 58-year-old female sent for abdominal pain, chest pain. Patient has acute pancreatitis. Patient will be admitted for IV fluid hydration, pain control patient also complained of chest pain though this is felt to be referred. Patient will have repeat troponin and patient or further evaluation. - Lab Data Result diagrams: 01/06/19 11:15 01/06/19 11:15 Lab Results 01/06/19 01/06/19 01/06/19 Range/Units 11:15 11:15 11:15 WBC 9.3 (3.8-10.6) k/uL RBC 4.55 (3.80-5.40) m/uL Hgb 12.9 (11.4-16.0) gm/dL Hct 39.3 (34.0-46.0) % MCV 86.4 (80.0-100.0) fL MCH 28.4 (25.0-35.0) pg MCHC 32.9 (31.0-37.0) g/dL RDW 14.0 (11.5-15.5) % Plt Count 263 (150-450) k/uL Neutrophils % 75 % Lymphocytes % 17 % Monocytes % 4 % Eosinophils % 1 % Basophils % 1 % Neutrophils # 7.0 (1.3-7.7) k/uL Lymphocytes # 1.6 (1.0-4.8) k/uL Monocytes # 0.4 (0-1.0) k/uL Eosinophils # 0.1 (0-0.7) k/uL Basophils # 0.1 (0-0.2) k/uL PT 10.3 (9.0-12.0) sec INR 1.0 (<1.2) APTT 23.2 (22.0-30.0) sec Sodium 139 (137-145) mmol/L Potassium 4.4 (3.5-5.1) mmol/L Chloride 107 (98-107) mmol/L Carbon Dioxide 21 L (22-30) mmol/L Anion Gap 11 mmol/L BUN 21 H (7-17) mg/dL Creatinine 0.58 (0.52-1.04) mg/dL Est GFR (CKD-EPI)AfAm >90 (>60 ml/min/1.73 sqM) Est GFR (CKD-EPI)NonAf >90 (>60 ml/min/1.73 sqM) Glucose 87 (74-99) mg/dL Calcium 9.0 (8.4-10.2) mg/dL Magnesium 2.0 (1.6-2.3) mg/dL Total Bilirubin 0.6 (0.2-1.3) mg/dL AST 107 H (14-36) U/L ALT 58 H (9-52) U/L Alkaline Phosphatase 105 (38-126) U/L Troponin I (0.000-0.034) ng/mL Total Protein 6.7 (6.3-8.2) g/dL Albumin 4.0 (3.5-5.0) g/dL Amylase 204 H (30-110) U/L Lipase 1737 H (23-300) U/L Urine Color Urine Appearance (Clear) Urine pH (5.0-8.0) Ur Specific Ful[place] (1.001-1.035) Urine Protein (Negative) Urine Glucose (UA) (Negative) Urine Ketones (Negative) Urine Blood (Negative) Urine Nitrite (Negative) Urine Bilirubin (Negative) Urine Urobilinogen (<2.0) mg/dL Ur Leukocyte Esterase (Negative) Urine RBC (0-5) /hpf Urine WBC (0-5) /hpf Ur Squamous Epith Cells (0-4) /hpf Amorphous Sediment (None) /hpf Urine Bacteria (None) /hpf Urine Mucus (None) /hpf 01/06/19 01/06/19 Range/Units 11:15 11:15 WBC (3.8-10.6) k/uL RBC (3.80-5.40) m/uL Hgb (11.4-16.0) gm/dL Hct (34.0-46.0) % MCV (80.0-100.0) fL MCH (25.0-35.0) pg MCHC (31.0-37.0) g/dL RDW (11.5-15.5) % Plt Count (150-450) k/uL Neutrophils % % Lymphocytes % % Monocytes % % Eosinophils % % Basophils % % Neutrophils # (1.3-7.7) k/uL Lymphocytes # (1.0-4.8) k/uL Monocytes # (0-1.0) k/uL Eosinophils # (0-0.7) k/uL Basophils # (0-0.2) k/uL PT (9.0-12.0) sec INR (<1.2) APTT (22.0-30.0) sec Sodium (137-145) mmol/L Potassium (3.5-5.1) mmol/L Chloride (98-107) mmol/L Carbon Dioxide (22-30) mmol/L Anion Gap mmol/L BUN (7-17) mg/dL Creatinine (0.52-1.04) mg/dL Est GFR (CKD-EPI)AfAm (>60 ml/min/1.73 sqM) Est GFR (CKD-EPI)NonAf (>60 ml/min/1.73 sqM) Glucose (74-99) mg/dL Calcium (8.4-10.2) mg/dL Magnesium (1.6-2.3) mg/dL Total Bilirubin (0.2-1.3) mg/dL AST (14-36) U/L ALT (9-52) U/L Alkaline Phosphatase (38-126) U/L Troponin I <0.012 (0.000-0.034) ng/mL Total Protein (6.3-8.2) g/dL Albumin (3.5-5.0) g/dL Amylase (30-110) U/L Lipase (23-300) U/L Urine Color Yellow Urine Appearance Cloudy H (Clear) Urine pH 5.5 (5.0-8.0) Ur Specific [place] 1.019 (1.001-1.035) Urine Protein Negative (Negative) Urine Glucose (UA) Negative (Negative) Urine Ketones Negative (Negative) Urine Blood Negative (Negative) Urine Nitrite Negative (Negative) Urine Bilirubin Negative (Negative) Urine Urobilinogen <2.0 (<2.0) mg/dL Ur Leukocyte Esterase Large H (Negative) Urine RBC 2 (0-5) /hpf Urine WBC 7 H (0-5) /hpf Ur Squamous Epith Cells 8 H (0-4) /hpf Amorphous Sediment Rare H (None) /hpf Urine Bacteria Rare H (None) /hpf Urine Mucus Rare H (None) /hpf Disposition Clinical Impression: Atypical chest pain, Acute pancreatitis, Low back strain Disposition: ADMITTED IP TO THIS [facility] Condition: Fair Referrals: Pan Wooten MD [Primary Care Provider] - 1-2 days
[2019-01-06] MEDS ORDERED: SODIUM CHLORIDE 0.9% 1,000 ML IV ONE (12:34)
[2019-01-06] MEDS: SODIUM CHLORIDE 0.9% 1,000 ML IV SCH (12:51)
[2019-01-06 18:20] VITALS: BMI 26.4
[2019-01-06] MEDS: KETOROLAC 30 MG/ML 1 ML VIAL IVP SCH ×2 (18:46→22:53)
[2019-01-06] MEDS ORDERED: ALPRAZolam 1 MG TAB PO PRN (20:02)
[2019-01-06] MEDS ORDERED: hydrOXYzine HCL 25 MG TAB PO PRN (20:02)
[2019-01-06] MEDS ORDERED: OSPEMIFENE 60 MG PO SCH (21:00)
[2019-01-06] MEDS ORDERED: LEVOTHYROXINE 137 MCG TAB PO SCH (21:00)
[2019-01-07] MEDS: SODIUM CHLORIDE 0.9% 1,000 ML IV SCH ×2 (03:10→14:36)
[2019-01-07] MEDS: KETOROLAC 30 MG/ML 1 ML VIAL IVP SCH ×2 (06:16→12:30)
[2019-01-07 06:59] LABS: ALT 100 U/L (9-52); AST 106 U/L (14-36); African American GFR (CKD) >90 (>60 ml/min/1.73 sqM); Albumin 3.3 g/dL (3.5-5.0); Alkaline Phosphatase 104 U/L (38-126); Anion Gap 6 mmol/L; Blood Urea Nitrogen 11 mg/dL (7-17); Calcium 8.8 mg/dL (8.4-10.2); Carbon Dioxide 27 mmol/L (22-30); Chloride 109 mmol/L (98-107); Cholesterol 211 mg/dL (<200); Glucose 91 mg/dL (74-99); HDL Cholesterol 60 mg/dL (40-60); LDL Cholesterol,Calculated 134 mg/dL (0-99); Potassium 4.4 mmol/L (3.5-5.1); Sodium 142 mmol/L (137-145); Total Bilirubin 0.5 mg/dL (0.2-1.3); Total Protein 5.8 g/dL (6.3-8.2); Triglycerides 83 mg/dL (<150)
[2019-01-07] MEDS ORDERED: ASPIRIN 325 MG TAB PO SCH (09:00)
[2019-01-07 10:13] VITALS: RESP 20; TEMP 97.8
[2019-01-07] MEDS ORDERED: CYCLOBENZAPRINE 5 MG TAB PO PRN (12:34)
--- NOTE | 2019-01-07 12:44 | P.HPIM ---
History of Present Illness H&P Date: 01/07/19 Chief Complaint: Abdominal pain. Mrs. Guevara is a 58-year-old female with a past medical history of hypothyroidism, anxiety, GERD coming in with a chief complaint of acute epigastric pain that has been going on for the past 1-2 days. The patient states that she has to current episodes of pancreatitis and she feels that this is one of her episode. Patient has nausea but denies having any vomiting or diarrhea. No fevers chills. No yellowish discoloration of her eyes. Patient denies having any chest pain or difficulty in breathing. No headaches or blurring of vision. She mentions that she she is being warmed up for a pancreatic lesion and also a liver mass and that she is scheduled for an ERCP at [facility] in couple of weeks. She also mentions that she has a large lymph node in her chest. On review of systems patient mentions that she was trying to get out of the chair and twisted her back and since then she is having low back pain. Patient denies having any tingling or numbness in her lower extremities. No loss of bowel or bladder control. She just feels that she has spasm in her lower back. In the ER patient had labs drawn which was showing elevated amylase and lipase along with mildly elevated LFTs. Patient was kept nothing by mouth and admitted to the floors. As her belly pain is getting better she ate her lunch this afternoon and did not feel nauseous. She only has mild upper epigastric pain. Review of Systems REVIEW OF SYSTEMS: PSYCH: History of anxiety NEURO:No c/o weakness of the extremties, No facial droop, No speech abnormalities. VASCULAR: Peripheral nervous system within the normal limits no edema HEMATOLOGIC: No history of easy bleeding and bruising . No recent infections . RESPIRATORY: No cough, No SOB, No chest discomfort. 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 spleen aneursym History of Any Multi-Drug Resistant Organisms: None Reported Past Surgical History: Cholecystectomy Additional Past Surgical History / Comment(s): colonoscopy, histalscopy, D&C Past Anesthesia/Blood Transfusion Reactions: No Reported Reaction Past Psychological History: Anxiety, Depression Smoking Status: Never smoker Past Alcohol Use History: None Reported Additional Past Alcohol Use History / Comment(s): She is a lifelong nonsmoker. She denies any illicit drug use, no alcohol abuse. 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 Past Drug Use History: None Reported - Past Family History Father Additional Family Medical History / Comment(s): Father from end-stage COPD. Mother Additional Family Medical History / Comment(s): Mother at age 55 from non- Hodgkin's lymphoma. Brother(s) Additional Family Medical History / Comment(s): Patient had a total of 5 brothers: One at age 55 from lung cancer, one from a myocardial infarction with this first one being in his 50s. Patient has 3 brothers that are alive and one has coronary artery disease. One brother is a half-brother with no major medical problems. One full brother has no major medical problems. Sister(s) Additional Family Medical History / Comment(s): The patient has one sister with history of postural orthostatic tachycardic syndrome, cardiac ablation, hypothyroidism. Daughter(s) Additional Family Medical History / Comment(s): The patient has 2 daughters and one has been diagnosed with Graves' disease. A second daughter and one son with no major medical problems. Medications and Allergies Home Medications Medication Instructions Recorded Confirmed Type ALPRAZolam 1 tab PO TID PRN 08/18/15 01/06/19 History Levothyroxine Sodium [Synthroid] 137 mcg PO HS 11/07/18 01/06/19 History hydrOXYzine HCL [Atarax] 25 mg PO TID PRN 11/07/18 01/06/19 History Acetaminophen-Codeine 300-30mg 1 tab PO ONCE PRN 01/06/19 01/06/19 History [Tylenol w/codeine #3] Albuterol Sulfate [Proair Hfa] 1 - 2 puff INHALATION RT-Q6H PRN 01/06/19 01/06/19 History Fluticasone/Vilanterol [Breo 1 puff INHALATION RT-BID 01/06/19 01/06/19 History Ellipta 100-25 Mcg Inhaler] Ospemifene [Osphena] 60 mg PO HS 01/06/19 01/06/19 History Allergies Allergy/AdvReac Type Severity Reaction Status Date / Time hydromorphone [From Dilaudid] AdvReac Severe Itching Verified 01/06/19 10:49 morphine AdvReac Nausea & Verified 01/06/19 10:49 Vomiting Physical Exam Vitals: Vital Signs Temp Pulse Pulse Resp BP BP Pulse Ox 01/07/19 08:00 97.8 F 85 20 107/64 97 01/07/19 04:00 98.0 F 73 18 118/65 98 01/06/19 23:50 71 18 01/06/19 23:46 97.9 F 71 18 130/71 93 L 01/06/19 20:00 97.8 F 74 18 128/73 95 01/06/19 18:02 98.1 F 85 16 140/79 97 01/06/19 18:00 98.1 F 85 18 140/79 97 01/06/19 17:45 98.1 F 67 18 110/78 98 01/06/19 17:00 98.2 F 68 18 108/73 98 01/06/19 16:00 67 16 110/70 97 01/06/19 15:00 71 18 115/81 98 01/06/19 14:00 73 16 123/76 98 01/06/19 13:00 73 18 105/73 98 Intake and Output 01/06/19 01/07/19 01/07/19 22:59 06:59 14:59 Intake Total 10 480 Balance 10 480 Intake: IV 10 Invasive Line 1 10 Oral 480 Other: Voiding Method Toilet Toilet # Voids 1 1 Weight 65.8 kg GEN. APPEARANCE: alert, in no apparent distress HEAD EXAM: atraumatic, normocephalic, normal inspection EYE EXAM: normal appearance, PERRL, EOMI. Absent: scleral icterus, conjunctival injection, periorbital swelling ENT EXAM: normal exam, mucous membranes moist NECK EXAM: No thyromegaly. No lymphadenopathy. RESPIRATORY EXAM: Bilateral breath sounds are positive. No wheeze or crackles. CARDIOVASCULAR EXAM: S1-S2 heard. No additional sounds. GI/ABDOMINAL EXAM: Mild tenderness in the right upper quadrant. No organomegaly. Normal bowel sounds. EXTREMITIES EXAM: Pedal edema BACK EXAM: No point tenderness in the lower back. Mild tenderness in the paraspinal area mostly on the left side. NEUROLOGICAL EXAM: alert, oriented X3, no focal deficits PSYCHIATRIC EXAM: normal affect, normal mood SKIN EXAM: warm, dry, intact, normal color. Absent: rash Results CBC & Chem 7: 01/06/19 11:15 01/07/19 06:19 Labs: Abnormal Lab Results - Last 24 Hours (Table) 01/07/19 Range/Units 06:19 Chloride 109 H (98-107) mmol/L AST 106 H (14-36) U/L ALT 100 H (9-52) U/L Total Protein 5.8 L (6.3-8.2) g/dL Albumin 3.3 L (3.5-5.0) g/dL Cholesterol 211 H (<200) mg/dL LDL Cholesterol, Calc 134 H (0-99) mg/dL Thrombosis Risk Factor Assmnt - Choose All That Apply Each Factor Represents 1 point: Age 41-60 years Thrombosis Risk Factor Assessment Total Risk Factor Score: 1 Thrombosis Risk Factor Assessment Level: Low Risk Assessment and Plan Assessment: ASSESSMENT Acute pancreatitis History of pancreatic lesion and the liver mass Hypothyroidism Anxiety Lower back spasm GERD History of migraine headaches History of spleen aneurysm PLAN: Patient was started on IV fluids in the given pain medications after which her symptoms of epigastric pain resolved. Patient tolerated her lunch pretty well. Denies having any nausea vomiting or epigastric pain. She was worried about the elevated amylase and lipase levels. Discussed with her that it has very little clinical significance as long as she is able to tolerate by mouth, she shouldn't be worried about these. And she also has ERCP scheduled at [facility] in couple of weeks. We will get an x-ray of her lower back. Flexeril when necessary for muscle spasms. Anticipate discharge in the next 24 hours.
--- NOTE | 2019-01-07 13:45 | XR ---
EXAMINATION TYPE: XR lumbar spine 2 or 3V , 3 VIEWS DATE OF EXAM ORDERED: 01/07/2019 HISTORY: Pain. COMPARISON: Previous study dated 07/14/2013. FINDINGS: The gallbladder is been removed. Vertebral body height and alignment are maintained. No fractures are seen. There is no spondylolysis or spondylolisthesis. Disc spaces are reasonably well-maintained. The pedicles are intact. IMPRESSION: NORMAL LUMBAR SPINE.
--- NOTE | 2019-01-07 13:46 | XR ---
EXAMINATION TYPE: XR Hip Complete LT , 2 VIEWS DATE OF EXAM ORDERED: 01/07/2019 HISTORY: pain. COMPARISON: None. FINDINGS: The patient is well-maintained. No fracture, dislocation or other acute osseous lesion is seen. There are phleboliths within the pelvis. IMPRESSION: NORMAL LEFT HIP.
--- NOTE | 2019-01-07 15:26 | P.DS ---
Providers Date of admission: 01/06/19 13:24 Expected date of discharge: 01/07/19 Attending physician: Mendez Walden Primary care physician: Pan Wooten [place] Hospital Course: Mrs. Guevara is a 58-year-old female with a past medical history of hypothyroidism, anxiety, GERD coming in with a chief complaint of acute epigastric pain that has been going on for the past 1-2 days. The patient states that she has to current episodes of pancreatitis and she feels that this is one of her episode. Patient has nausea but denies having any vomiting or diarrhea. No fevers chills. No yellowish discoloration of her eyes. Patient denies having any chest pain or difficulty in breathing. No headaches or blurring of vision. She mentions that she she is being warmed up for a pancreatic lesion and also a liver mass and that she is scheduled for an ERCP at [facility] in couple of weeks. She also mentions that she has a large lymph node in her chest. On review of systems patient mentions that she was trying to get out of the chair and twisted her back and since then she is having low back pain. Patient denies having any tingling or numbness in her lower extremities. No loss of bowel or bladder control. She just feels that she has spasm in her lower back. In the ER patient had labs drawn which was showing elevated amylase and lipase along with mildly elevated LFTs. Patient was kept nothing by mouth and admitted to the floors. As her belly pain is getting better she ate her lunch this afternoon and did not feel nauseous. She only has mild upper epigastric pain. Hospital course - patient was started on IV fluids in the given pain medications after which her symptoms of epigastric pain resolved. Patient tolerated her lunch pretty well. Denies having any nausea vomiting or epigastric pain. She was worried about the elevated amylase and lipase levels. Discussed with her that it has very little clinical significance as long as she is able to tolerate by mouth, she shouldn't be worried about these. And she also has ERCP scheduled at [facility] in couple of weeks. X-rays of her lower back done - no fracture. Flexeril when necessary for muscle spasms. Patient states that she is stable to go home. So she is being discharged home in a stable condition. Explained to her what symptoms worsen she is advised to come back to the hospital. DISCHARGE DIAGNOSIS Acute pancreatitis History of pancreatic lesion and the liver mass Hypothyroidism Anxiety Lower back spasm GERD History of migraine headaches History of spleen aneurysm PLAN: Patient is advised to follow up with her primary care physician in 2-3 days. And also to follow-up at [facility] for her ERCP that has been scheduled. Patient is being discharged home in a stable condition. Patient Condition at Discharge: Fair Plan - Discharge Summary Discharge Rx Participant: Yes New Discharge Prescriptions: New Cyclobenzaprine [Flexeril] 5 mg PO TID PRN #15 tab PRN Reason: Muscle Spasm Continue ALPRAZolam 1 tab PO TID PRN PRN Reason: Anxiety Levothyroxine Sodium [Synthroid] 137 mcg PO HS hydrOXYzine HCL [Atarax] 25 mg PO TID PRN PRN Reason: Itching Ospemifene [Osphena] 60 mg PO HS Fluticasone/Vilanterol [Breo Ellipta 100-25 Mcg Inhaler] 1 puff INHALATION RT-BID Albuterol Sulfate [Proair Hfa] 1 - 2 puff INHALATION RT-Q6H PRN PRN Reason: Shortness Of Breath Acetaminophen-Codeine 300-30mg [Tylenol w/codeine #3] 1 tab PO ONCE PRN PRN Reason: Pain Discharge Medication List ALPRAZolam 1 tab PO TID PRN 08/18/15 [History] Levothyroxine Sodium [Synthroid] 137 mcg PO HS 11/07/18 [History] hydrOXYzine HCL [Atarax] 25 mg PO TID PRN 11/07/18 [History] Acetaminophen-Codeine 300-30mg [Tylenol w/codeine #3] 1 tab PO ONCE PRN 01/06/19 [History] Albuterol Sulfate [Proair Hfa] 1 - 2 puff INHALATION RT-Q6H PRN 01/06/19 [History] Fluticasone/Vilanterol [Breo Ellipta 100-25 Mcg Inhaler] 1 puff INHALATION RT- BID 01/06/19 [History] Ospemifene [Osphena] 60 mg PO HS 01/06/19 [History] Cyclobenzaprine [Flexeril] 5 mg PO TID PRN #15 tab 01/07/19 [Rx] Follow up Appointment(s)/Referral(s): Pan Wooten MD [Primary Care Provider] - 1-2 days Discharge Disposition: HOME SELF-CARE
[2019-01-07 15:34] VITALS: BP 124/70; PULSE 88
== END 2019-01-07 15:44 | disposition home or self-care (01) | DRG 440 ==
LOC: EC 10:21 → 3SCARD 13:24
PROVIDERS: ADMIT Internal Medicine; ATTEND Internal Medicine
DX: K85.90 Acute pancreatitis without necrosis or infection, unspecified (principal); E03.9 Hypothyroidism, unspecified; F32.9 Major depressive disorder, single episode, unspecified; F41.9 Anxiety disorder, unspecified; K21.9 Gastro-esophageal reflux disease without esophagitis; S39.012A Strain of muscle, fascia and tendon of lower back, initial encounter; X50.1XXA Overexertion from prolonged static or awkward postures, initial encounter; Z79.890 Hormone replacement therapy; Z80.1 Family history of malignant neoplasm of trachea, bronchus and lung; Z82.49 Family history of ischemic heart disease and other diseases of the circulatory system; Z82.5 Family history of asthma and other chronic lower respiratory diseases; Z79.891 Long term (current) use of opiate analgesic; Z79.899 Other long term (current) drug therapy; Z88.5 Allergy status to narcotic agent; Z90.49 Acquired absence of other specified parts of digestive tract; R16.0 Hepatomegaly, not elsewhere classified; K86.9 Disease of pancreas, unspecified
CPT/HCPCS: 36415; 71046; 72100; 73502; 80053; 80061; 81001; 82150; 83690; 83735; 84484; 85025; 85610; 85730; 93005; 96361; 96374; 99285

== ENCOUNTER → 2019-04-29 | Outpatient (CLI) | payer BC, OTHER ==
--- NOTE | 2019-04-30 03:07 | MR ---
EXAMINATION TYPE: MR abdomen wo/w con DATE OF EXAM: 04/29/2019 COMPARISON: 11/08/2018 HISTORY: Mass of pancreas CONTRAST: Standard multiplanar, multisequence MRI departmental protocol utilizing 6.5 mL intravenous Gadavist g adolinium contrast. Liver has normal size and contour spleen has normal size and contour. The bile ducts are not dilated. There is cholecystectomy. There are 2 small cysts that measure 1 cm in the anterior right lobe of th e liver. There is a 13 mm cystic area in the right lobe of the liver in the medial aspect. Stomach is intact. There is no evidence of pleural effusion. Pancreatic duct is not dilated. On the T2 images t here is a rounded area of slight increased signal at the posterior aspect of the tail of the pancreas adjacent to the spleen that measures 7 mm and unchanged in size and signal compared to last exam. There is no adrenal mass. Kidneys have normal size. There is no hydronephrosis. There is no evidence of retroperitoneal adenopathy. I see no pathologic enhancement. IMPRESSION: Stable hepatic cysts. Stable small lesion nonenhancing in the tail of the pancreas and consistent wit h benign etiology.
== END | disposition home or self-care (01) ==
LOC: RADMRIMAIN 09:14
PROVIDERS: ATTEND Physician Assistant
DX: K76.89 Other specified diseases of liver (principal); K86.89 Other specified diseases of pancreas
CPT/HCPCS: 74183; A9585

== ENCOUNTER → 2019-10-03 | Outpatient (CLI) | payer BC, OTHER ==
--- NOTE | 2019-10-03 10:40 | MM ---
Reason for exam: clinical finding. Last mammogram was performed 4 years and 1 month ago. History: Patient is postmenopausal. Family history of breast cancer in aunt at age 50, breast cancer in mother at age 50, breast cancer in sister at age 50, and breast cancer in grandmother. Took hormonal contraceptives for 1 year. Physical Findings: Nurse did not find any significant physical abnormalities on exam. MG 3D Diag Mammo W/Cad JEET Bilateral CC and MLO view(s) were taken. Prior study comparison: September 02, 2015, bilateral MG 3d diag mammo w/cad JEET. September 17, 2006, CAD bilateral diagnostic mammogram. The breast tissue is heterogeneously dense. This may lower the sensitivity of mammography. Stable benign calcifications. There is no discrete abnormality. No significant new findings when compared with previous films. These results were verbally communicated with the patient and result sheet given to the patient on 10/03/19. ASSESSMENT: Benign, BI-RAD 2 RECOMMENDATION: Routine screening mammogram of both breasts in 1 year.
== END | disposition home or self-care (01) ==
LOC: RADMAMWWP 06:55
PROVIDERS: ATTEND Family Medicine
DX: R92.8 Other abnormal and inconclusive findings on diagnostic imaging of breast (principal); N94.9 Unspecified condition associated with female genital organs and menstrual cycle
CPT/HCPCS: 77062; 77066

== ENCOUNTER → 2020-04-26 | Outpatient (CLI) | payer MEDICAID, OTHER | END | disposition home or self-care (01) | LOC: LABWHC1 13:02 | PROVIDERS: ATTEND Nurse Practitioner Family | DX: Z03.818 Encounter for observation for suspected exposure to other biological agents ruled out (principal); Z20.822 Contact with and (suspected) exposure to COVID-19 | CPT/HCPCS: U0003; C9803; U0005 ==

== ENCOUNTER → 2020-06-06 | Outpatient (CLI) | payer MEDICAID, OTHER ==
--- NOTE | 2020-06-06 19:33 | CT ---
EXAMINATION TYPE: CT abdomen pelvis w con DATE OF EXAM: 06/06/2020 COMPARISON: 11/07/2018 HISTORY: LLQ pain and constipation CT DLP: 600.2 mGycm Automated exposure control for dose reduction was used. TECHNIQUE: Helical acquisition of images was performed from the lung bases through the pelvis. CONTRAST: Performed with Oral Contrast and with IV Contrast, patient injected with 100 mL of Isovue 3 00. FINDINGS: LUNG BASES: No acute findings. LIVER/GB: No significant abnormality is appreciated. The multifocal liver cysts are redemonstrated, u nchanged. PANCREAS: No significant abnormality is seen. The pancreatic tail hyperdense focus is redemonstrated, unchanged SPLEEN: No significant abnormality is seen. ADRENALS: No significant abnormality is seen. KIDNEYS: No significant abnormality is seen. FREE AIR: No free air is visualized. RETROPERITONEAL ADENOPATHY: None visualized REPRODUCTIVE ORGANS: No significant abnormality is seen URINARY BLADDER: No significant abnormality is seen. PELVIC ADENOPATHY: None visualized. OSSEOUS STRUCTURES: No significant abnormality is seen. BOWEL: No significant abnormality is seen. Specifically, the left lower quadrant large and small bow el are unremarkable. Mildly prominent colonic stool noted within the descending and transverse colon noted. OTHER: No acute vascular findings. IMPRESSION: 1. No definite acute CT process. 2. Flattened inferior vena cava, bilateral renal and pelvic veins noted; which can correlate with a clinical diagnosis of relative dehydration.
== END | disposition home or self-care (01) ==
LOC: RADCTMAIN 17:20
PROVIDERS: ATTEND Family Medicine
DX: R10.32 Left lower quadrant pain (principal)
CPT/HCPCS: 74177; Q9967

== ENCOUNTER → 2020-10-17 | Outpatient (CLI) | payer MEDICAID, OTHER ==
[2020-10-17 11:06] LABS: Basophils # (A) 0.05 X 10*3/uL (0.00-0.10); Basophils % (A) 0.8 %; Eosinophils % (A) 1.6 %; HGB 13.9 g/dL (12.0-15.0); Lymphocytes # (A) 1.77 X 10*3/uL (0.90-5.00); Lymphocytes % (A) 27.7 %; MCH 28.7 pg (27.0-32.0); MCHC 33.1 g/dL (32.0-37.0); MCV 86.6 fL (80.0-97.0); Mean Platelet Volume 9.5 fL (9.5-12.2); Monocytes % (A) 6.3 %; Neutrophils # (A) 4.06 X 10*3/uL (1.80-7.70); Neutrophils % (A) 63.4 %; Platelet Count 324 X 10*3/uL (140-440); RBC 4.85 X 10*6/uL (4.10-5.20); RDW 13.2 % (11.5-14.5); WBC 6.39 X 10*3/uL (4.50-10.00)
[2020-10-17 13:58] LABS: African American GFR (CKD) 94.2 (60.0-200.0); Albumin 4.3 g/dL (3.80-4.90); Albumin/Globulin Ratio 2.05 (1.60-3.17); Anion Gap 8.2 mmol/L (4.00-12.00); BUN/Creat Ratio 21.25 Ratio (12.00-20.00); Calcium 9.3 mg/dL (8.7-10.3); Carbon Dioxide 24.8 mmol/L (21.6-31.8); Globulin 2.1 g/dL (1.6-3.3); Non-African American GFR(CKD) 81.3 (60.0-200.0); Potassium 4.4 mmol/L (3.5-5.5); Total Bilirubin 0.3 mg/dL (0.3-1.2); Total Protein 6.4 g/dL (6.2-8.2)
[2020-10-17 14:05] LABS: Prolactin 7.4 ng/mL (2.8-29.2)
[2020-10-17 17:03] LABS: Hemoglobin A1C 5.4 % (4.0-6.0)
== END | disposition home or self-care (01) ==
LOC: LABWHC1 06:59
PROVIDERS: ATTEND Internal Medicine Endocrinology, Diabetes & Metabolism
DX: E03.8 Other specified hypothyroidism (principal); R53.83 Other fatigue
CPT/HCPCS: 36415; 80053; 82024; 82306; 82533; 82607; 83036; 84146; 84443; 85025

== ENCOUNTER → 2020-12-30 | Outpatient (CLI) | payer MEDICAID, OTHER ==
--- NOTE | 2020-12-30 10:44 | XR ---
EXAMINATION TYPE: XR chest 2V DATE OF EXAM: 12/30/2020 COMPARISON: 01/06/2019 HISTORY: Shortness of breath TECHNIQUE: Frontal and lateral views of the chest are obtained. FINDINGS: Scattered senescent parenchymal changes noted. No evidence for infiltrate. No evidence for atelectasis. Heart size is stable. Mediastinal structures are stable and grossly unremarkable. No evidence for hilar prominence. Degenerative changes dorsal spine. IMPRESSION: 1. No evidence for acute pulmonary disease.
== END | disposition home or self-care (01) ==
LOC: LABWHC1 10:26
PROVIDERS: ATTEND Nurse Practitioner
DX: Z20.822 Contact with and (suspected) exposure to COVID-19 (principal); B34.9 Viral infection, unspecified; R06.02 Shortness of breath
CPT/HCPCS: 87502; 71046; U0003; C9803

== ENCOUNTER → 2021-01-17 | Outpatient (CLI) | payer MEDICAID, OTHER ==
--- NOTE | 2021-01-19 07:51 | CT ---
EXAMINATION TYPE: CT ChestAbdPelvis w con DATE OF EXAM: 01/17/2021 COMPARISON: Most recent CT June 06, 2020 and older studies HISTORY: pancreatic mass, lung nodules CT DLP: 735.8 mGycm. Automated Exposure Control for Dose Reduction was Utilized. CONTRAST: CT scan of the thorax, abdomen and pelvis is performed with oral and with IV Contrast, patient inject ed with 100 mL of Isovue 300. FINDINGS: LUNGS: No new greater than 5 mm pulmonary nodules or masses. No suspicious focal consolidation. The re is no pleural effusion or pneumothorax seen. The tracheobronchial tree is patent. MEDIASTINUM: There are no greater than 1 cm hilar or mediastinal lymph nodes. No cardiomegaly or pe ricardial effusion is seen. LIVER/GB: Cholecystectomy clips are redemonstrated. Stable 1.6 cm hypodense lesion central liver with peripheral nodular enhancement that show centripetal filling axial image 43 consistent with benign h emangioma. Punctate hypodense lesion superior to this axial image 37 also stable presumed benign PANCREAS: There are stable 1.0 x 0.8 cm hyperdense lesion in the posterior pancreatic tail from November 07, 2018 CT. This is isodense to spleen. A small splenule at this level is strongly favored. No new p ancreatic mass or ductal dilatation SPLEEN: There is 1.0 cm hilar calcified splenic artery aneurysm redemonstrated. ADRENALS: No significant abnormality is seen. KIDNEYS: No significant abnormality is seen. BOWEL: Oral contrast has not reached terminal ileum level. Few diverticula in sigmoid colon. No CT ev idence for acute diverticulitis. No suspicious small or large bowel dilatation. Mild to moderate prox imal colonic fecal prominence. GENITAL ORGANS: No gross abnormality seen. LYMPH NODES: No greater than 1cm abdominal or pelvic lymph nodes are appreciated. OSSEOUS STRUCTURES: Transitional-type L6 vertebra is redemonstrated. Facet arthropathy lower lumbar l evels. OTHER: No significant additional abnormality is seen. IMPRESSION: No worrisome new or enlarging greater than 5 mm pulmonary nodules. Stable 1.0 cm posterio r pancreatic tail hyperdense lesion favors benign splenule.
== END | disposition home or self-care (01) ==
LOC: RADCTMAIN 17:34
PROVIDERS: ATTEND Family Medicine
DX: R91.8 Other nonspecific abnormal finding of lung field (principal); K86.89 Other specified diseases of pancreas
CPT/HCPCS: 71260; 74177; Q9967

== ENCOUNTER → 2021-04-01 | Outpatient (CLI) | payer MEDICAID, OTHER | END | disposition home or self-care (01) | LOC: LABWHC1 09:56 | PROVIDERS: ATTEND Family Medicine | DX: Z20.822 Contact with and (suspected) exposure to COVID-19 (principal); J06.9 Acute upper respiratory infection, unspecified | CPT/HCPCS: 87502; U0003; C9803 ==

== ENCOUNTER → 2021-07-08 | Outpatient (CLI) | payer MEDICAID, OTHER ==
--- NOTE | 2021-07-08 12:19 | XR ---
EXAMINATION TYPE: XR foot limited RT DATE OF EXAM: 07/08/2021 CLINICAL HISTORY: Pain after recent fall injury TECHNIQUE: Frontal and lateral images of the right foot are obtained. COMPARISON: None FINDINGS: There is acute oblique slightly impacted fracture through the mid to distal diaphysis of th e fifth proximal phalanx. There is poor visualization of the distal fifth toe possibly projectional o r related to distal osteolysis. There appears to be some ossific fusion of the fourth middle and dis [place] phalanx. Joint spaces are maintained. Moderate to large sized inferior calcaneal spur incidentall y noted. The overlying soft tissue appears unremarkable. IMPRESSION: There is acute slightly displaced oblique fracture mid to distal diaphysis fifth proxima l phalanx.
--- NOTE | 2021-07-08 12:22 | XR ---
EXAMINATION TYPE: XR lumbar spine 2 or 3V DATE OF EXAM: 07/08/2021 CLINICAL HISTORY: Fall down stairs injury with pain TECHNIQUE: Frontal and lateral images of the lumbar spine are obtained. COMPARISON: Prior lumbar spine x-ray December 28, 2018. Prior body CT January 17, 2021 FINDINGS: There is transitional L6 type vertebra. The lumbar spine shows stable and satisfactory al ignment without evidence of acute fracture or dislocation. Mild disc space narrowing L6-S1 level othe rwise Vertebral body heights and disk space heights are maintained. Spina bifida defect L6 level rede monstrated. The overlying soft tissue appears unremarkable. IMPRESSION: No acute fracture or dislocation is seen in the lumbar spine.
--- NOTE | 2021-07-08 12:30 | XR ---
EXAMINATION TYPE: XR thoracic spine complete DATE OF EXAM: 07/08/2021 CLINICAL HISTORY: Back pain after recent fall injury. TECHNIQUE: Frontal, lateral, and swimmer's view of thoracic spine are obtained. COMPARISON: Prior thoracic spine x-ray July 14, 2013. FINDINGS: Thoracic spine show slight scoliotic curvature or positioning without evidence of acute fra cture or dislocation. Vertebral body heights and disc space heights are fairly well maintained. Visu alized ribs are intact bilaterally. Cholecystectomy clips are partially imaged. IMPRESSION: As above. No significant change from prior.
== END | disposition home or self-care (01) ==
LOC: RADXRMAIN 11:31
PROVIDERS: ATTEND Nurse Practitioner Family
DX: S92.511A Displaced fracture of proximal phalanx of right lesser toe(s), initial encounter for closed fracture (principal); S39.92XA Unspecified injury of lower back, initial encounter; Z90.49 Acquired absence of other specified parts of digestive tract; M41.84 Other forms of scoliosis, thoracic region; W19.XXXA Unspecified fall, initial encounter
CPT/HCPCS: 72072; 72100

== ENCOUNTER 2022-10-12 17:03 | Emergency (ER) | payer BC, OTHER ==
[2022-10-12 17:08] VITALS: TEMP 98
[2022-10-12 19:10] LABS: Appearance,Urine Cloudy (Clear); Basophils % (A) 0 %; Bilirubin,Urine Negative (Negative); Blood,Urine Negative (Negative); Color,Urine Yellow; Eosinophils # (A) 0.2 k/uL (0-0.7); Eosinophils % (A) 2 %; Glucose,Urine (UA) Negative (Negative); HCT 41.2 % (34.0-46.0); HGB 13.7 gm/dL (11.4-16.0); Ketones,Urine Negative (Negative); Leukocyte Esterase,Urine Trace (Negative); Lymphocytes # (A) 2.4 k/uL (1.0-4.8); Lymphocytes % (A) 25 %; MCHC 33.4 g/dL (31.0-37.0); Mean Platelet Volume 8.1; Monocytes # (A) 0.3 k/uL (0-1.0); Monocytes % (A) 3 %; Mucus,Urine Occasional /hpf; Neutrophils # (A) 6.5 k/uL (1.3-7.7); Neutrophils % (A) 68 %; Nitrite,Urine Negative (Negative); Platelet Count 250 k/uL (150-450); Protein,Urine Negative (Negative); RBC,Urine 1 /hpf (0-5); RDW 13.3 % (11.5-15.5); Specific Gravity,Urine 1.022 (1.001-1.035); Squamous Epithelial Cell,Urine 8 /hpf (0-4); Urobilinogen,Urine <2.0 mg/dL (<2.0); WBC 9.6 k/uL (3.8-10.6); WBC,Urine 2 /hpf (0-5)
[2022-10-12 19:18] LABS: ALT 21 U/L (4-34); AST 27 U/L (14-36); African American GFR (CKD) >90 (>60 ml/min/1.73 sqM); Albumin 3.9 g/dL (3.5-5.0); Alkaline Phosphatase 131 U/L (38-126); Amylase 44 U/L (30-110); Anion Gap 5 mmol/L; Blood Urea Nitrogen 15 mg/dL (7-17); Calcium 8.8 mg/dL (8.4-10.2); Carbon Dioxide 27 mmol/L (22-30); Chloride 107 mmol/L (98-107); Glucose 90 mg/dL (74-99); Lipase 86 U/L (23-300); Non-African American GFR(CKD) 83 (>60 ml/min/1.73 sqM); Potassium 4.2 mmol/L (3.5-5.1); Sodium 139 mmol/L (137-145); Total Bilirubin 0.2 mg/dL (0.2-1.3); Total Protein 6.4 g/dL (6.3-8.2)
[2022-10-12] MEDS ORDERED: KETOROLAC 15 MG/ML 1 ML VIAL IVP STA (19:24)
--- NOTE | 2022-10-12 19:53 | CT ---
EXAMINATION TYPE: CT abdomen pelvis w con DATE OF EXAM: 10/12/2022 COMPARISON: 01/17/2021 HISTORY: RLQ pain CT DLP: 705.7 mGycm CONTRAST: CT scan of the abdomen and pelvis is performed without Oral Contrast and with IV Contrast, patient in jected with 100 mL of Isovue 300. FINDINGS: LUNG BASES-: No visible nodule. No infiltrate. LIVER/GB: The gallbladder surgically absent. 1.6 cm hypoattenuating lesion right hepatic lobe may ref lect a cyst. No space occupying hepatic lesion. Biliary tree is of normal caliber. PANCREAS: No inflammation. No distinct mass. SPLEEN: No splenic enlargement. No lesion seen. ADRENALS: No nodule. No thickening. KIDNEYS/BLADDER: No hydronephrosis. No nephrolithiasis. No distinct renal mass. Urinary bladder g rossly unremarkable. BOWEL: Normal appendix. Normal bowel caliber. Mild inflammatory change involving the distal descendi ng colon with adjacent diverticula compatible with Mild uncomplicated diverticulitis. No free air or abscess seen. GENITAL ORGANS: No gross abnormality. LYMPH NODES: No greater than 1cm abdominal or pelvic lymph nodes are appreciated. AORTA: No significant abnormality. OSSEOUS STRUCTURES: No significant abnormality is seen. OTHER: No significant additional abnormality is seen. IMPRESSION: 1. Mild inflammatory change involving the distal descending colon with adjacent diverticula compatibl e with Mild uncomplicated diverticulitis.
--- NOTE | 2022-10-12 20:17 | ED ---
General Adult HPI - General Chief complaint: Abdominal Pain Stated complaint: abd pain Time Seen by Provider: 10/12/22 17:48 Source: patient, RN notes reviewed Mode of arrival: ambulatory - History of Present Illness Initial comments: 7-year-old female presents emergency department chief complaint of right lower quadrant pain 1 day. Patient states that is sharp stabbing pain in the right lower quadrant. She states that the pain comes and goes lasting for around 20-30 seconds at a time. She reports that she's been more constipated than usual. Denies diarrhea, nausea, vomiting, fever, chills. Abdominal surgeries include cholecystectomy. - Related Data Home Medications Medication Instructions Recorded Confirmed hydrOXYzine HCL [Atarax] 25 mg PO TID 11/07/18 10/12/22 Albuterol Sulfate [Proair Hfa] 1 - 2 puff INHALATION RT-Q6H PRN 01/06/19 10/12/22 ALPRAZolam [Xanax] 0.25 mg PO TID 10/12/22 10/12/22 Cyclobenzaprine [Flexeril] 10 mg PO BID 10/12/22 10/12/22 Levothyroxine Sodium [Synthroid] 150 mcg PO DAILY 10/12/22 10/12/22 Pantoprazole Sodium [Protonix] 40 mg PO DAILY 10/12/22 10/12/22 ondansetron HCL [Ondansetron HCl] 8 mg PO BID PRN 10/12/22 10/12/22 Previous Rx's Medication Instructions Recorded Amoxic-Pot Clav 875-125Mg 1 tab PO Q8HR #15 tab 10/12/22 [Augmentin 875-125] Allergies Allergy/AdvReac Type Severity Reaction Status Date / Time hydromorphone [From Dilaudid] AdvReac Severe Itching Verified 10/12/22 20:37 morphine AdvReac Nausea & Verified 10/12/22 20:37 Vomiting Review of Systems ROS Statement: Those systems with pertinent positive or pertinent negative responses have been documented in the HPI. ROS Other: All systems not noted in ROS Statement are negative. Past Medical History Past Medical History: GERD/Reflux, Thyroid Disorder Additional Past Medical History / Comment(s): migraines , hiatel hernia, pancreatitis, lesions being tested for pancreas, liver, lungs, breast. spleen aneursym History of Any Multi-Drug Resistant Organisms: None Reported Past Surgical History: Cholecystectomy Additional Past Surgical History / Comment(s): colonoscopy, histalscopy, D&C Past Anesthesia/Blood Transfusion Reactions: No Reported Reaction Past Psychological History: Anxiety, Depression Smoking Status: Never smoker Past Alcohol Use History: None Reported Past Drug Use History: None Reported - Past Family History Father Additional Family Medical History / Comment(s): Father from end-stage COPD. Mother Additional Family Medical History / Comment(s): Mother at age 55 from non-Hodgkin's lymphoma. Brother(s) Additional Family Medical History / Comment(s): Patient had a total of 5 brothers: One at age 55 from lung cancer, one from a myocardial infarction with this first one being in his 50s. Patient has 3 brothers that are alive and one has coronary artery disease. One brother is a half-brother with no major medical problems. One full brother has no major medical problems. Sister(s) Additional Family Medical History / Comment(s): The patient has one sister with history of postural orthostatic tachycardic syndrome, cardiac ablation, hypothyroidism. Daughter(s) Additional Family Medical History / Comment(s): The patient has 2 daughters and one has been diagnosed with Graves' disease. A second daughter and one son with no major medical problems. General Exam Limitations: no limitations General appearance: alert, in no apparent distress Head exam: Present: atraumatic, normocephalic, normal inspection Eye exam: Present: normal appearance, PERRL, EOMI. Absent: scleral icterus, conjunctival injection, periorbital swelling ENT exam: Present: normal exam, mucous membranes moist Neck exam: Present: normal inspection. Absent: tenderness, meningismus, lymphadenopathy Respiratory exam: Present: normal lung sounds bilaterally. Absent: respiratory distress, wheezes, rales, rhonchi, stridor Cardiovascular Exam: Present: regular rate, normal rhythm, normal heart sounds. Absent: systolic murmur, diastolic murmur, rubs, gallop, clicks GI/Abdominal exam: Present: soft, tenderness (RLQ), normal bowel sounds. Absent: distended, guarding, rebound, rigid Extremities exam: Present: normal inspection, full ROM, normal capillary refill. Absent: tenderness, pedal edema, joint swelling, calf tenderness Back exam: Present: normal inspection Neurological exam: Present: alert, oriented X3, CN II-XII intact Psychiatric exam: Present: normal affect, normal mood Skin exam: Present: warm, dry, intact, normal color. Absent: rash Course Vital Signs 10/12/22 10/12/22 17:04 21:31 Temperature 98 F Pulse Rate 119 H 102 H Respiratory 20 18 Rate Blood Pressure 143/82 133/78 O2 Sat by Pulse 97 98 Oximetry Medical Decision Making - Medical Decision Making Was pt. sent in by a medical professional or institution (, PA, CLIENT SUCCESS DIRECTOR, urgent care, hospital, or fci...) When possible be specific @ -No Did you speak to anyone other than the patient for history (EMS, parent, family, police, friend...)? What history was obtained from this source @ -No Did you review nursing and triage notes (agree or disagree)? Why? @ -I reviewed and agree with nursing and triage notes Were old charts reviewed (outside hosp., previous admission, EMS record, old EKG, old radiological studies, urgent care reports/EKG's, fci records)? Report findings @ -No old charts were reviewed Differential Diagnosis (chest pain, altered mental status, abdominal pain women, abdominal pain men, vaginal bleeding, weakness, fever, dyspnea, syncope, headache, dizziness, GI bleed, back pain, seizure, CVA, palpatations, mental h ealth, musculoskeletal)? @ -Differential Abdominal Pain Women: Appendicitis, Cholecystitis, diverticulosis, ischemic bowel, pancreatitis, hepatitis, UTI, gastroenteritis, AAA, incarcerated hernia, bowel obstruction, constipation, inflammatory bowel, hepatitis, peptic ulcer disease, splenic infarction, perforated viscus, vulvitis, ovarian torsion, PID, kidney stone, placenta abruption, this is not meant to be an all-inclusive list EKG interpreted by me (3pts min.). @ -None X-rays interpreted by me (1pt min.). @ -None done CT interpreted by me (1pt min.). @ -CT abdomen and pelvis with contrast showed mild inflammatory changes involving the distal descending colon with adjacent diverticula compatible with mild uncomplicated diverticulitis U/S interpreted by me (1pt. min.). @ -None done What testing was considered but not performed or refused? (CT, X-rays, U/S, labs)? Why? @ -None What meds were considered but not given or refused? Why? @ -None Did you discuss the management of the patient with other professionals (kristin morales iVieVi Pereira, PA, CLIENT SUCCESS DIRECTOR, lab, RT, psych nurse, social services specialist, solar sales associate, teacher, worldwide chief creative officer, social work case manager)? Give summary @ -No Was smoking cessation discussed for >3mins.? @ -No Was critical care preformed (if so, how long)? @ -No Were there social determinants of health that impacted care today? How? (Homelessness, low income, unemployed, alcoholism, drug addiction, transportatio n, low edu. Level, literacy, decrease access to med. care, longterm, rehab)? @ -No Was there de-escalation of care discussed even if they declined (Discuss DNR or withdrawal of care, Hospice)? DNR status @ -No What co-morbidities impacted this encounter? (DM, HTN, Smoking, COPD, CAD, Cancer, CVA, ARF, Chemo, Hep., AIDS, mental health diagnosis, sleep apnea, morbid obesity)? @ -None Was patient admitted / discharged? Hospital course, mention meds given and route, prescriptions, significant lab abnormalities, going to OR and other pertinent info. @ -Discharged. Patient sent emergency department chief complaint of right lower quadrant pain 1 day. CBC within normal limits, CMP within normal limits, lipase 86, amylase 44; UA showed no evidence for urinary tract infection. CT abdomen and pelvis showed evidence of mild acute diverticulitis. Patient treated with antibiotics in the emergency department and prescription sent the patient with pharmacy. Return precautions discussed. Patient discharged in stable condition. Case discussed with my attending, Dr. Cardona Undiagnosed new problem with uncertain prognosis? @ -No Drug Therapy requiring intensive monitoring for toxicity (Heparin, Nitro, Insulin, Cardizem)? @ -No Were any procedures done? @ -No Diagnosis/symptom? @ -diverticulitis Acute, or Chronic, or Acute on Chronic? @ -acute Uncomplicated (without systemic symptoms) or Complicated (systemic symptoms)? @ -uncomplicated Side effects of treatment? @ -No Exacerbation, Progression, or Severe Exacerbation? @ -No Poses a threat to life or bodily function? How? (Chest pain, USA, DC, pneumonia, PE, COPD, DKA, ARF, appy, cholecystitis, CVA, Diverticulitis, Homicidal, Suicidal, threat to staff... and all critical care pts) @ -No - Lab Data Result diagrams: 10/12/22 18:45 10/12/22 18:45 Lab Results 10/12/22 10/12/22 10/12/22 Range/Units 18:45 18:45 18:45 WBC 9.6 (3.8-10.6) k/uL RBC 4.90 (3.80-5.40) m/uL Hgb 13.7 (11.4-16.0) gm/dL Hct 41.2 (34.0-46.0) % MCV 84.0 (80.0-100.0) fL MCH 28.0 (25.0-35.0) pg MCHC 33.4 (31.0-37.0) g/dL RDW 13.3 (11.5-15.5) % Plt Count 250 (150-450) k/uL MPV 8.1 Neutrophils % 68 % Lymphocytes % 25 % Monocytes % 3 % Eosinophils % 2 % Basophils % 0 % Neutrophils # 6.5 (1.3-7.7) k/uL Lymphocytes # 2.4 (1.0-4.8) k/uL Monocytes # 0.3 (0-1.0) k/uL Eosinophils # 0.2 (0-0.7) k/uL Basophils # 0.0 (0-0.2) k/uL Sodium 139 (137-145) mmol/L Potassium 4.2 (3.5-5.1) mmol/L Chloride 107 (98-107) mmol/L Carbon Dioxide 27 (22-30) mmol/L Anion Gap 5 mmol/L BUN 15 (7-17) mg/dL Creatinine 0.78 (0.52-1.04) mg/dL Est GFR (CKD-EPI)AfAm >90 (>60 ml/min/1.73 sqM) Est GFR (CKD-EPI)NonAf 83 (>60 ml/min/1.73 sqM) Glucose 90 (74-99) mg/dL Plasma Lactic Acid Frank (0.7-2.0) mmol/L Calcium 8.8 (8.4-10.2) mg/dL Total Bilirubin 0.2 (0.2-1.3) mg/dL AST 27 (14-36) U/L ALT 21 (4-34) U/L Alkaline Phosphatase 131 H (38-126) U/L Total Protein 6.4 (6.3-8.2) g/dL Albumin 3.9 (3.5-5.0) g/dL Amylase 44 (30-110) U/L Lipase 86 (23-300) U/L Urine Color Yellow Urine Appearance Cloudy H (Clear) Urine pH 6.0 (5.0-8.0) Ur Specific [place] 1.022 (1.001-1.035) Urine Protein Negative (Negative) Urine Glucose (UA) Negative (Negative) Urine Ketones Negative (Negative) Urine Blood Negative (Negative) Urine Nitrite Negative (Negative) Urine Bilirubin Negative (Negative) Urine Urobilinogen <2.0 (<2.0) mg/dL Ur Leukocyte Esterase Trace H (Negative) Urine RBC 1 (0-5) /hpf Urine WBC 2 (0-5) /hpf Ur Squamous Epith Cells 8 H (0-4) /hpf Urine Mucus Occasional H (None) /hpf 10/12/22 Range/Units 18:45 WBC (3.8-10.6) k/uL RBC (3.80-5.40) m/uL Hgb (11.4-16.0) gm/dL Hct (34.0-46.0) % MCV (80.0-100.0) fL MCH (25.0-35.0) pg MCHC (31.0-37.0) g/dL RDW (11.5-15.5) % Plt Count (150-450) k/uL MPV Neutrophils % % Lymphocytes % % Monocytes % % Eosinophils % % Basophils % % Neutrophils # (1.3-7.7) k/uL Lymphocytes # (1.0-4.8) k/uL Monocytes # (0-1.0) k/uL Eosinophils # (0-0.7) k/uL Basophils # (0-0.2) k/uL Sodium (137-145) mmol/L Potassium (3.5-5.1) mmol/L Chloride (98-107) mmol/L Carbon Dioxide (22-30) mmol/L Anion Gap mmol/L BUN (7-17) mg/dL Creatinine (0.52-1.04) mg/dL Est GFR (CKD-EPI)AfAm (>60 ml/min/1.73 sqM) Est GFR (CKD-EPI)NonAf (>60 ml/min/1.73 sqM) Glucose (74-99) mg/dL Plasma Lactic Acid Frank 0.8 (0.7-2.0) mmol/L Calcium (8.4-10.2) mg/dL Total Bilirubin (0.2-1.3) mg/dL AST (14-36) U/L ALT (4-34) U/L Alkaline Phosphatase (38-126) U/L Total Protein (6.3-8.2) g/dL Albumin (3.5-5.0) g/dL Amylase (30-110) U/L Lipase (23-300) U/L Urine Color Urine Appearance (Clear) Urine pH (5.0-8.0) Ur Specific [place] (1.001-1.035) Urine Protein (Negative) Urine Glucose (UA) (Negative) Urine Ketones (Negative) Urine Blood (Negative) Urine Nitrite (Negative) Urine Bilirubin (Negative) Urine Urobilinogen (<2.0) mg/dL Ur Leukocyte Esterase (Negative) Urine RBC (0-5) /hpf Urine WBC (0-5) /hpf Ur Squamous Epith Cells (0-4) /hpf Urine Mucus (None) /hpf Disposition Clinical Impression: Diverticulitis Disposition: HOME SELF-CARE Condition: Stable Instructions (If sedation given, give patient instructions): Diverticulitis (ED) Additional Instructions: Please return to the emergency department for new or worsening symptoms. Prescriptions: Amoxic-Pot Clav 875-125Mg [Augmentin 875-125] 1 tab PO Q8HR #15 tab Is patient prescribed a controlled substance at d/c from ED?: No Referrals: Pan Wooten MD [Primary Care Provider] - 1-2 days Time of Disposition: 21:21
[2022-10-12] MEDS ORDERED: AMOXIC-POT CLAV 875-125MG 1 EACH TAB PO STA (21:19)
[2022-10-12 21:36] VITALS: BP 133/78; PULSE 102; RESP 18
== END 2022-10-12 21:36 | disposition home or self-care (01) ==
LOC: EC 17:03
DX: K57.30 Diverticulosis of large intestine without perforation or abscess without bleeding (principal); K21.9 Gastro-esophageal reflux disease without esophagitis; E07.9 Disorder of thyroid, unspecified; F41.9 Anxiety disorder, unspecified; F32.A Depression, unspecified; Z88.5 Allergy status to narcotic agent; Z79.890 Hormone replacement therapy; Z79.899 Other long term (current) drug therapy
CPT/HCPCS: 36415; 80053; 82150; 83605; 83690; 85025; 81001; 74177; 99284; 96374; J1885; Q9967

== ENCOUNTER → 2024-04-10 | Outpatient (CLI) | payer OTHER ==
--- NOTE | 2024-04-10 08:48 | BD ---
EXAMINATION TYPE: Axial Bone Density DATE OF EXAM: 04/10/2024 CLINICAL HISTORY: 63 years old Female. ICD-10 CODE: Z78.0 ASYMPTOMATIC , Additional History: Height: 61 Weight: 138.5 FRAX RISK QUESTIONS: Alcohol (3 or more units per day): no Family History (Parent hip fracture): no Glucocorticoids (More than 3mos): no (Ex: prednisone, prednisolone, methylprednisolone, dexamethasone, and hydrocortisone). History of Fracture in Adulthood: no Secondary Osteoporosis: 1. Type 1 Diabetes: no 2. Hyperthyroidism: no 3. Menopause before 45: no 4. Malnutrition: no 5. Chronic liver disease: no Rheumatoid Arthritis: no Current Tobacco Use: no RISK FACTORS HISTORY OF: Hip Fracture (Right/Left): no Spine Fracture: no History of Wrist Fracture: yes When: as a child Surgery to Spine/Hip(right/left)/Wrist (right/left): no MEDICATIONS: Thyroid Medications: Levothyroxine How Long: past 8 years Osteoporosis Medications: no EXAM MEASUREMENTS: Bone mineral densitometry was performed using the [employer]. Bone mineral density as measured about the Lumbar spine is: ----- L1-L4(G/cm2): 0.830 T Score Values are as follows: ----- L1: -2.8 ----- L2: -3.6 ----- L3: -2.7 ----- L4: -2.7 ----- L1-L4: -2.9 Z Score Values are as follows: ----- L1: -1.4 ----- L2: -2.1 ----- L3: -1.2 ----- L4: -1.3 ----- L1-L4: -1.5 Baseline Study Bone mineral density about the R hip (g/cm2): 0.826 Bone mineral density about the L hip (g/cm2): 0.812 T Score values are as follows: -----R Neck: -1.1 -----L Neck: -1.0 -----R Total: -1.4 -----L Total: -1.6 Z Score values are as follows: -----R Neck: 0.3 -----L Neck: 0.4 -----R Total: -0.3 -----L Total: -0.5 Baseline Study FRAX%s: The graph provided illustrates a 7.8 % chance for a major osteoporotic fx and a 0.5% chance f or the hips probability for fx in 10 years time. IMPRESSION: Osteoporosis (T Score less than -2.5). There is increased fracture risk and therapy is usually indicated based on age. Re-Screen 1-2 years. NOTE: T-SCORE=SD OF THE YOUNG ADULT MEAN. [facility], , 04/10/2024 8:46 AM
--- NOTE | 2024-04-10 09:29 | XR ---
EXAMINATION TYPE: XR mandible complete, 5 views DATE OF EXAM: 04/10/2024 COMPARISON: NONE CLINICAL INDICATION: Female, 63 years old with history of R68.84 jaw pain; Limited range of motion, m ore so on the left side FINDINGS: Slight leftward nasal septal deviation. The TMJs appear intact. No acute fracture is seen. Orbits appear symmetric. IMPRESSION: No acute fracture or dislocation. The TMJs appear intact. If there is persistent concern, consider CT or MRI as clinically indicated. [facility], , 04/10/2024 9:27 AM
== END | disposition home or self-care (01) ==
LOC: RADMAMWWP 07:17
PROVIDERS: ATTEND Family Medicine
DX: Z12.31 Encounter for screening mammogram for malignant neoplasm of breast (principal); Z78.0 Asymptomatic menopausal state; M81.8 Other osteoporosis without current pathological fracture; R68.84 Jaw pain
CPT/HCPCS: 70110; 77063; 77067; 77080